=== PATIENT | male | born 1975 | race Caucasian/White ===

== ENCOUNTER 2020-03-18 07:49 | Emergency (ER) | payer BC, SELFPAY ==
--- NOTE | ~2020-03-18 | XR_ITS ---
EXAMINATION: CT abdomen pelvis wo con, XR abdomen/kub 1V DATE: 03/18/2020 08:27 INDICATION: Left flank pain. TECHNIQUE: 1. Computed tomography (CT) of the abdomen and pelvis was performed without intravenous contrast. The dose-length product was 282.42 mGy-cm. 2. Supine AP view of the abdomen and pelvis was obtained on 2 radiographs. COMPARISON: None FINDINGS: CT: Calcite nodules in the lingula and right lower lobe consistent with old granulomatous disease. Emphys artemio versus a couple small pneumatoceles in the right lower lobe. Visualized base of the heart is norm al. No pericardial or pleural effusion. Liver, gallbladder, spleen, pancreas, bilateral adrenal gland s and kidneys are normal. No urolithiasis at the kidneys or ureters. Bladder is normal. Prostatomegal y. There is moderate colonic diverticulosis with a sigmoid and descending colon predominance. There is no adjacent inflammatory change to suggest diverticulitis. Small bowel and appendix are normal. No free intraperitoneal gas or fluid. No pathologically enlarged abdominal or pelvic lymphadenopathy. M oderate disc height loss at L2-L3. Otherwise minimal scattered degenerative skeletal changes. KUB: An oblong radiopaque ingested pill projects over the right abdomen. No suspicious calcification is in the abdomen or pelvis. Normal bowel gas pattern. IMPRESSION: 1. No urolithiasis or acute intra-abdominal/pelvic process. 2. Diverticulosis. Reviewed, dictated and finalized at location A. IMPRESSION: 1. No urolithiasis or acute intra-abdominal/pelvic process. 2. Diverticulosis.
--- NOTE | 2020-03-18 08:11 | ED.BACK ---
HPI - Back Pain/Injury General Chief Complaint: Abdominal Pain Stated Complaint: left flank pain Time Seen by Provider: 03/18/20 08:05 Source: patient Mode of arrival: ambulatory Limitations: no limitations History of Present Illness HPI Narrative: This patient is a 44 year old male with chronic back pain who presents with c/o left flank pain x 3 days. Patient reports pain has been present for 3 days. Initially his pain was intermittent but is has been constant for the past 24 hours. His pain is located in left lower back and he states it does not radiate. He states he has been taking ibuprofen for his pain but it hasnt helped over the past 24 hours. He last took medication last night at 10 pm. He states he is sure that it is a kidney stone. He denies urinary symptoms, nausea, vomiting or fever. MD elicited complaint: back pain Pertinent past history: kidney stones Onset (ago): day(s) (3) Timing: progressively worsening Pain scale (0-10): 5 Relieving factors: movement Associated symptoms: denies other symptoms Related Data Allergies Allergy/AdvReac Type Severity Reaction Status Date / Time No Known Drug Allergies Allergy Unknown Unknown Verified 03/18/20 08:24 Review of Systems Review of Systems: All systems reviewed & are unremarkable except as noted in HPI and below Constitutional: Constitutional: Denies chills and Denies fever(s) ENT: Denies dizziness Gastrointestinal: Gastrointestinal: Denies abdominal pain, Denies diarrhea, Denies nausea and Denies vomiting Genitourinary: Genitourinary: Denies hematuria, Denies oliguria and Denies urinary incontinence Musculoskeletal: Musculoskeletal: Reports back pain Neurologic: Denies dizziness and Denies weakness PMFSH Past Medical History Medical History (Updated 03/18/20 @ 10:14 by Jacquelin Quick MD) Patient denies medical problems Surgical History Surgical History (Updated 03/18/20 @ 08:12 by Jacquelin Quick MD) H/O sinus surgery Social History Social History (Updated 03/18/20 @ 08:12 by Jacquelin Quick MD) Smoking packs per day: 1 Smoking cigarettes per day: 20.0 Smoking status: Current every day smoker Gender identity (if verbalized by the patient): Male Exam Narrative: Exam Narrative: GENERAL: Well-appearing, well-nourished, and in no acute distress. HEAD: Normocephalic, atraumatic EYES: PERRLA and EOMI, conjunctiva clear without discharge THROAT:Mucous membranes moist, Oropharynx normal without erythema, exudate, peritonsillar swelling or fluctuance NECK: Supple, without lymphadenopathy or mass RESPIRATORY: No respiratory distress, Airway patent, Respirations non-labored, Clear to auscultation without rales, rhonchi or wheeze HEART: Regular rate and rhythm. No murmur heard. Normal peripheral pulses. ABDOMEN: Soft, nontender, nondistended, normal active bowel sounds. No masses. No rebound or guarding, No organomegaly. EXTREMITIES: No edema, normal strength with full range of motion. SKIN: Warm, dry, normal color without rash NEURO: Alert and oriented x3. CN 2-12 grossly intact. No focal deficits. PSYCH: Normal mood and affect. Course Reevaluation(s) Reevaluation #1: I have discussed with patient that labs are unremarkable. He has no kidney stones but his pain is likely related to his back, spine. He states he has muscle relaxers at home and he declined medication in ER. Date: 03/18/20 Time: 10:11 Vital Signs Vital signs: Vital Signs Temperature 98.3 F 03/18/20 08:20 Pulse Rate 64 03/18/20 08:20 Respiratory Rate 18 03/18/20 08:20 Blood Pressure 125/81 03/18/20 08:20 Pulse Oximetry 99 03/18/20 08:20 Temperature 98.3 F 03/18/20 08:20 Pulse Rate 67 03/18/20 10:46 Respiratory Rate 18 03/18/20 10:46 Blood Pressure 126/80 03/18/20 10:46 Pulse Oximetry 99 03/18/20 10:46 MDM - Back Pain/Injury Lab Data Attestation: I reviewed the patient's lab results. Result diagrams: 0
[2020-03-18 08:20] VITALS: BP 125/81; PULSE 64; RESP 18; TEMP 36.8; O2SAT 99
[2020-03-18 08:29] LABS: Add Urine Microscopic? NO; Appearance Urine Clear (Clear); Bilirubin Urine Negative (Negative); Blood Urine Negative (Negative); Color Urine Straw (Yellow); Glucose Urine UA Negative (Negative); Ketones Urine Negative (Negative); Leukocyte Esterase Ur Negative LEU/UL (Negative); Nitrate Urine Negative (Negative); Protein Urine Negative (Negative); Urobilinogen Urine Negative mg/dL (<2.0)
[2020-03-18 08:39] LABS: Blood Urea Nitrogen 14 mg/dL (9-20); Calcium 9.5 mg/dL (8.4-10.2); Carbon Dioxide 27 mmol/L (22-30); Chloride 103 mmol/L (98-107); Estimated CRCL calculation 111 ml/min; Estimated Glomerular Filt Rate > 60; Glucose 102 mg/dL (75-110); Sodium 137 mmol/L (137-145)
[2020-03-18 08:40] LABS: Basophils Absolute Auto 0.1 K/mm3 (0.0-0.1); Basophils Percent Auto 1.7 % (0.2-1.2); Eosinophils Absolute Auto 0.2 K/mm3 (0-0.3); Eosinophils Percent Auto 2.2 % (0-4.4); Hematocrit 47.9 % (42.0-52.0); Hemoglobin 16.3 g/dL (14.0-18.0); Immature Granulocyte Absolute 0.03 K/mm3 (0.00-0.031); Immature Granulocyte Percent A 0.4 % (0-0.5); Lymphocytes Absolute Auto 2.11 K/mm3 (0.9-3.2); Lymphocytes Percent Auto 25.5 % (18.3-44.2); Mean Corpuscular Hemoglobin 30.6 pg (26-34); Mean Corpuscular Volume 89.9 fl (80-100); Monocytes Absolute Auto 0.6 K/mm3 (0.1-0.6); Neutrophils Absolute Auto 5.2 K/mm3 (1.3-6.7); Neutrophils Percent Auto 63.2 % (45.5-73.1); Platelet Count Result 302 k/mm3 (150-375); Red Blood Count 5.33 M/mm3 (4.6-6.20); White Blood Count 8.3 K/mm3 (4.5-10.0)
--- NOTE | 2020-03-18 09:34 | PC.NURSE ---
Pt refuses pain medication. Will inform Dr. Quick of this.
[2020-03-18 10:46] VITALS: BP 126/80; PULSE 67; RESP 15; RESP 18; O2SAT 99
== END 2020-03-18 10:47 | disposition home or self-care (01) ==
PROVIDERS: Emergency Provider General Practice; PCP Otolaryngology
DX: M54.5 Low back pain (principal); F17.210 Nicotine dependence, cigarettes, uncomplicated; K57.90 Diverticulosis of intestine, part unspecified, without perforation or abscess without bleeding
CPT/HCPCS: 36415; 74018; 74176; 80048; 81003; 85025; 99284

== ENCOUNTER → 2021-03-21 01:35 | Outpatient (CLI) | payer BC, SELFPAY ==
[2021-03-21 17:24] LABS: SARS-CoV-2 RNA PCR Negative
== END ==
PROVIDERS: PCP Pediatrics; Visit Provider Internal Medicine Gastroenterology
DX: Z01.812 Encounter for preprocedural laboratory examination (principal); Z20.822 Contact with and (suspected) exposure to COVID-19
CPT/HCPCS: C9803; U0003; U0005

== ENCOUNTER 2021-03-24 00:17 | Day surgery (SDC) | payer BC, SELFPAY ==
[2021-03-16 16:06] VITALS: BMI 27.3
[2021-03-24] MEDS: LACTATED RINGERS 1,000 ML 150 ML IV CONT (10:37)
[2021-03-24 10:41] VITALS: BP 146/82; PULSE 68; RESP 16; TEMP 36.6; O2SAT 99; BMI 26.9
--- NOTE | 2021-03-24 11:05 | WPDANESEPPF ---
Anes - Initial Pre Proc Eval Procedure: Operation Date: 03/24/21 11:45 Proposed Procedures p Colonoscopy - Isaias Bey MD s [facility] Hemorrhoid Treatment - Isaias Bey MD Date/Time: 03/24/21 11:05 Surgeon: Isaias Bey MD Pre Op Diagnosis: hematochezia, internal hemorrhoids Patient Data Age: 45 Gender: M Height: 6 ft 4 in Weight: 100.5 kg Last Vital Signs Temp 97.9 F 03/24/21 10:41 Pulse 68 03/24/21 10:41 Resp 16 03/24/21 10:41 BP 146/82 H 03/24/21 10:41 Pulse Ox 99 03/24/21 10:41 Allergies Allergy/AdvReac Type Severity Reaction Status Date / Time grass pollen Allergy Sneezing Verified 03/24/21 10:46 Home Medications Medication Instructions Recorded Confirmed Type No Home Medications 03/16/21 03/24/21 History Patient hx anesthesia problems: none Family hx anesthesia problems: none [facility] Past Medical History Medical History External hemorrhoid Hematochezia Patient denies medical problems Tobacco use Surgical History Surgical History (Updated 03/18/20 @ 08:12 by Jacquelin Quick MD) H/O sinus surgery Social History Social History (Updated 03/18/20 @ 08:12 by Jacquelin Quick MD) Smoking packs per day: 1 Smoking cigarettes per day: 20.0 Years smoked: 33 Smoking pack-years: 33.00 Smoking status: Current every day smoker Tobacco type: cigarettes Alcohol intake: current Drinks per week: 6 Substance use: never Substance use type: does not use Living arrangements: with family Gender identity (if verbalized by the patient): Male Spiritual care concerns: No Anes - Eval Final PreProcedure Day of Procedure 03/24/21 11:05 Patient weight: overweight Heart: regular rate and rhythm Lungs: clear to auscultation Airway: Mallampati scale class II Neurological: alert and oriented Last oral intake: >/= 8 hours ASA classification: II Emergent: no Anesthetic plan: proceed Anesthesia type and monitoring: general GIVS and standard monitoring Informed Consent: The patient's anesthetic plan and its attendant risks and benefits were discussed with the patient/family/POA. Questions were solicited and answers provided to the satisfaction of the patient/family/POA.
--- NOTE | 2021-03-24 11:31 | WPDHPUPDATE1 ---
History and Physical Update Update Date/Time: 03/24/21 11:31 History and Physical has been reviewed, including an updated exam of the patient. There are NO changes in the patient's condition. Risks, benefits, and alternatives have been discussed and questions answered. Patient agrees to proceed with procedure.
--- NOTE | 2021-03-24 11:54 | PM.OP ---
Procedure Note - Brief Procedure Note - Brief Date of procedure: 03/24/21 Pre-op diagnosis: hematochezia, internal hemorrhoids Post-op diagnosis: same Procedure performed: infrared coagulation (IRC) Description of procedure: as soon as we completed colonoscopy while patient was still under anesthesia, I introduced anoscope and found grade II internal hemorrhoids with stigmata of recent bleeding (patient says that started bleeding after drinking bowel prep). Then used IRC probe to treat hemorrhoids 1.5 second each time x6. Surgeon: Isaias Bey MD Complications: No immediate complications
[2021-03-24 11:55] VITALS: BP 113/63; PULSE 56; RESP 26; O2SAT 97
[2021-03-24 12:05] VITALS: BP 121/67; PULSE 50; RESP 14; O2SAT 100
[2021-03-24 12:15] VITALS: BP 118/52; PULSE 49; RESP 16; O2SAT 98
== END 2021-03-24 12:38 | disposition home or self-care (01) ==
PROVIDERS: PCP Pediatrics; Visit Provider Internal Medicine Gastroenterology
PROC: 0DJD8ZZ Inspection of Lower Intestinal Tract, Via Natural or Artificial Opening Endoscopic (ICD-10-PCS; CPT 45378; principal; 2021-03-24 11:45)
PROC: (CPT 46930; 2021-03-24 11:45)
DX: Z12.11 Encounter for screening for malignant neoplasm of colon (principal); K57.30 Diverticulosis of large intestine without perforation or abscess without bleeding; K64.1 Second degree hemorrhoids; D12.2 Benign neoplasm of ascending colon; D12.3 Benign neoplasm of transverse colon; K92.1 Melena; K64.8 Other hemorrhoids; F17.210 Nicotine dependence, cigarettes, uncomplicated; K64.4 Residual hemorrhoidal skin tags
CPT/HCPCS: 45380; 46930; 88305; J2001; J2704; J7120

== ENCOUNTER 2021-08-14 18:34 | Emergency (ER) | payer BC, SELFPAY ==
[2021-08-14 18:34] VITALS: BP 140/68; PULSE 78; RESP 16; TEMP 36.5; O2SAT 100
[2021-08-14] MEDS: SODIUM CHLORIDE 0.9% IV 1,000 ML 999 ML IV CONT (21:39)
[2021-08-14] MEDS: diazePAM INJ (*CRX) 10 MG/2 ML SYRINGE 5 MG IV PUSH (21:40)
--- NOTE | 2021-08-14 21:59 | ED.EXTPRO ---
HPI - Extremity Problem General Chief complaint: Extremity Problem,Nontraumatic Stated complaint: left leg pain Time Seen by Provider: 08/14/21 21:01 History of Present Illness HPI Narrative: Patient is a 46-year-old male who presents ER with lower extremity pain occurring over the last week. Last week patient was having pain and cramping in his right thigh. He was seen at an outside hospital in [facility] where he had blood work performed. He is placed on gabapentin and followed up with his PCP. Pain moved from his right thigh over to his left calf. Calf and thigh on left side have been cramping intermittently over the last 3 days but been persistent today mainly in the calf. No numbness or tingling. No known injury. No new medications outside of the Flexeril and ibuprofen. Reports she noted a lump behind his knee on the left side today, and PCP was concerned it was a DVT so he was sent here. No lower extremity swelling. No long distance travel or prolonged immobilization. No recent surgeries or hormone use. Patient denies any chest pain or shortness of breath. Of note patient does have a bleeding hemorrhoid that is chronic and been giving him trouble for 20 years. He is scheduled with general surgery to have hemorrhoidectomy. Related Data Allergies Allergy/AdvReac Type Severity Reaction Status Date / Time grass pollen Allergy Sneezing Verified 03/24/21 10:46 Review of Systems Review of Systems: All systems reviewed & are unremarkable except as noted in HPI and below Constitutional: Constitutional: Denies chills and Denies fever(s) Cardiovascular: Cardiovascular: Denies chest pain and Denies radiating jaw, neck or arm pain Respiratory: Respiratory: Denies dyspnea Musculoskeletal: Musculoskeletal: Denies back pain, Denies arthralgias, Reports joint swelling (Posterior left knee) and Reports muscle cramps Neurologic: Denies focal weakness and Denies numbness PMFSH Past Medical History Medical History External hemorrhoid Hematochezia Patient denies medical problems Tobacco use Surgical History Surgical History (Updated 03/18/20 @ 08:12 by Jacquelin Quick MD) H/O sinus surgery Social History Social History (Updated 03/18/20 @ 08:12 by Jacquelin Quick MD) Smoking packs per day: 1 Smoking cigarettes per day: 20.0 Years smoked: 33 Smoking pack-years: 33.00 Smoking status: Current every day smoker Tobacco type: cigarettes Alcohol intake: current Drinks per week: 6 Substance use: never Substance use type: does not use Gender identity (if verbalized by the patient): Male Spiritual care concerns: No Exam Narrative: GENERAL: Well-appearing, well-nourished, and in no acute distress. HEAD: Normocephalic, atraumatic. CHEST: Clear to auscultation. No respiratory distress. HEART: Regular rate and rhythm. Normal peripheral pulses. EXTREMITIES: Focused exam of the left lower extremity reveals tenderness over the gastrocnemius bilaterally near the insertions of the tibia and along the midline aspect of the calf. No swelling palpable knots. No discernible swelling of the popliteal fossa on the left side. Normal dorsalis pedis and posterior tibial pulses in the left lower extremity. Patient walking with a limp due to pain in left leg. SKIN: Warm, dry, no rash. NEURO: Alert and oriented x3. PSYCH: Normal mood and affect. Course Course Emergency Course: Patient having improvement in pain with Toradol. Also received Valium. Discharge home with supportive care. Patient declines order for an ultrasound in the morning as he has follow-up with his PCP and will obtain an order then. Electrolytes normal. Vital Signs Vital signs: Vital Signs Temperature 97.7 F 08/14/21 18:34 Pulse Rate 78 08/14/21 18:34 Respiratory Rate 16 08/14/21 18:34 Blood Pressure 140/68 08/14/21 18:34 Pulse Oximetry 100 08/14/21 18:34 Temperature 97.7 F 08/14/21 18:34 Pulse Rate 78
[2021-08-14 22:04] VITALS: BP 146/77; RESP 18; O2SAT 96
[2021-08-14 22:05] LABS: Anion Gap 6 mmol/L (8-16); Blood Urea Nitrogen 16 mg/dL (9-20); Calcium 9.3 mg/dL (8.4-10.2); Carbon Dioxide 30 mmol/L (22-30); Chloride 101 mmol/L (98-107); Creatine Kinase 47 U/L (55-170); Estimated CRCL calculation 137 ml/min; Estimated Glomerular Filt Rate > 60; Glucose 127 mg/dL (65-110); Magnesium 2.3 mg/dL (1.6-2.3); Potassium 3.7 mmol/L (3.4-5.0); Sodium 137 mmol/L (137-145)
[2021-08-14] MEDS: KETOROLAC 30 MG/ML VIAL (*BKC) IV PUSH (22:21)
[2021-08-14] MEDS: HYDROcodone/acetaminophen (*CRX) 5-325 MG TABLET 1 TAB PO (23:24)
== END 2021-08-14 23:42 | disposition home or self-care (01) ==
PROVIDERS: Emergency Provider Emergency Medicine; PCP Pediatrics
DX: M62.838 Other muscle spasm (principal); F17.210 Nicotine dependence, cigarettes, uncomplicated
CPT/HCPCS: 36415; 80048; 82550; 83735; 96361; 96374; 96375; 99284; A9270; J1885; J3360; J7030

== ENCOUNTER → 2022-01-30 08:34 | Outpatient (CLI) | payer BC, SELFPAY ==
[2022-01-30 11:55] LABS: SARS-CoV-2 RNA PCR Negative
== END ==
PROVIDERS: PCP Pediatrics; Visit Provider Surgery
DX: Z01.812 Encounter for preprocedural laboratory examination (principal); Z20.822 Contact with and (suspected) exposure to COVID-19
CPT/HCPCS: C9803; U0003; U0005

== ENCOUNTER 2022-01-31 01:00 | Day surgery (SDC) | payer BC, SELFPAY ==
[2022-01-30 11:12] VITALS: BMI 22.1
--- NOTE | 2022-01-30 11:32 | SUR.PREOP ---
Report to the Outpatient Waiting Room, entrance under the green pavilion located off [facility], at time 1130 on date 01/31/2022 OR Time: 1330 - You and your visitor will be asked a series of questions to screen for COVID 19 for your protection. - A mask is required within the hospital. Preoperative COVID Testing Requirements: No COVID Test needed if: (proof is required; if not received patient will have Rapid Test prior to entry) - Patient has received COVID Vaccine at least 14 days prior to procedure date or - Patient has positive COVID test result within last 90 days of surgery date. COVID Test needed if above criteria is not met If not COVID vaccinated a COVID test must be conducted within 72 hours of surgery and patient is asked to isolate self from time of testing until procedure. You will go to the [facility] for your COVID testing. The [facility] is located at the corner of [address] [facility]. You will only be called if COVID results are positive and your surgeon may reschedule your elective surgery date. Patients may have clear liquids (water, carbonated beverages, clear teas, apple juice) until 3 hours prior to surgery with a maximum of 20 ounces. - No food from midnight until time of surgery - Infants may have breast milk until 4 hours before surgery, infant formula 6 hours prior to surgery. - Children will be allowed to drink immediately following surgery. If applicable, please bring a bottle or sippy cup to assist with drinking. Juice, water, soda, and popsicles are readily available. For infants on formula, please bring formula the day of surgery. Pacifiers are allowed. Take the following medications with a SIP of water the morning of surgery: oxycodone, acyclovir and ativan. Medications to discontinue per physician none. Date to take last dose N/A Please no make-up, nail sinhala, hairspray, perfume, deodorant, or body powder the day of surgery. No jewelry (including any body piercings) or valuables the day of surgery, leave them at home. Please take a shower or bath the night before, or the morning of, surgery with an antibacterial soap. Wear comfortable, loose fitting clothing. Children are encouraged to wear pajamas. - Jewelry must be removed prior to entering the operating room. Rings and piercings that are not removed may be cut off. - The hospital will not accept responsibility for valuables. - Please leave all valuables, including medications, at home the day of surgery. If you are going home after surgery, a licensed maintenance truck driver must drive you home. - NO public transportation without another adult. - We recommend that an adult stay with you for 24 hours following discharge. - We also recommend that you do not drive, make important decision, drink alcoholic beverages, or take any drugs that were not prescribed by your health care provider for at least 24 hours after your discharge time. Follow any additional instructions given to you from your surgeon. Telephone instructions given to spouse Iveth and patient Alessio and asked if any additional questions and then verbalized understanding. Patient advised to call surgeon office or pre surgery nurse liaison [phone] if any additional questions.
[2022-01-31] VITALS (9 sets, daily range): BP systolic 115–133; BP diastolic 68–96; PULSE 50–88; RESP 12–22; TEMP 36.3–36.6; O2SAT 100; BMI 21.5
[2022-01-31] MEDS: ACETAMINOPHEN 500 MG TABLET 1000 MG PO (12:15)
[2022-01-31] MEDS: KETOROLAC 15 MG/ML VIAL (*BKC) IV PUSH (12:15)
--- NOTE | 2022-01-31 12:24 | WPDANESEPPF ---
Anes - Initial Pre Proc Eval Procedure: Operation Date: 01/31/22 13:30 Proposed Procedures p Rectal Exam Under Anesthesia, Hemorrhoidectomy - Dorinda Breen MD Date/Time: 01/31/22 12:24 Surgeon: Dorinda Breen MD Pre Op Diagnosis: hemorrhoid grade 3 Patient Data Age: 46 Gender: M Height: 1.91 m Weight: 78.25 kg Last Vital Signs Temp 36.6 C 01/31/22 12:07 Pulse 88 01/31/22 12:07 Resp 14 01/31/22 12:07 BP 117/75 01/31/22 12:07 Pulse Ox 100 01/31/22 12:07 Allergies Allergy/AdvReac Type Severity Reaction Status Date / Time grass pollen Allergy Sneezing Verified 01/29/22 14:48 Home Medications Medication Instructions Recorded Confirmed Type acyclovir 400 mg PO TID 01/30/22 01/30/22 History fluconazole 200 mg PO BID 01/30/22 01/30/22 History lidocaine 5 patch TRANSDERMAL DAILY 01/30/22 01/30/22 History lorazepam 0.5 mg PO PRN 01/30/22 01/30/22 History oxycodone 5 mg PO Q6-8H 01/30/22 01/30/22 History tamsulosin 0.4 mg PO DAILY 01/30/22 01/30/22 History Patient hx anesthesia problems: none Family hx anesthesia problems: none Results Review: All pre-operative results and documents have been reviewed as part of the pre-operative evaluation. PMFSH Past Medical History Medical History Anxiety CML (chronic myelocytic leukemia) External hemorrhoid Hematochezia Patient denies medical problems Tobacco use Surgical History Surgical History H/O sinus surgery Social History Social History Smoking packs per day: 1 Smoking cigarettes per day: 20.0 Years smoked: 33 Smoking pack-years: 33.00 Smoking status: Former smoker Second hand tobacco smoke exposure: No Alcohol intake: current Drinks per week: 0 Substance use: never Substance use type: does not use Living arrangements: with family Gender identity (if verbalized by the patient): Male Spiritual care concerns: No Anes - Eval Final PreProcedure Day of Procedure 01/31/22 12:24 Patient weight: normal Heart: regular rate and rhythm Lungs: clear to auscultation and normal air movement Airway: Mallampati scale class II Neurological: alert and oriented Last oral intake: >/= 8 hours ASA classification: III Emergent: no Anesthetic plan: proceed Anesthesia type and monitoring: general LMA and standard monitoring Results Review: All pre-operative results and documents have been reviewed as part of the pre-operative evaluation. Informed Consent: The patient's anesthetic plan and its attendant risks and benefits were discussed with the patient/family/POA. Questions were solicited and answers provided to the satisfaction of the patient/family/POA.
--- NOTE | 2022-01-31 13:38 | WPDHPUPDATE1 ---
History and Physical Update Update Date/Time: 01/31/22 13:38 History and Physical has been reviewed, including an updated exam of the patient. There are NO changes in the patient's condition. Risks, benefits, and alternatives have been discussed and questions answered. Patient agrees to proceed with procedure.
[2022-01-31] MEDS: ceFAZolin 2 GM/D5W 50 ML 2 GM/50 ML BAG IVPB (13:41)
[2022-01-31] MEDS: LIDOCAINE HCL 2% GEL UROJET 10 ML PKG MUCOUS MEM (14:06)
[2022-01-31] MEDS: LACTATED RINGERS 1,000 ML 30 ML IV CONT ×2 (14:14→15:08)
--- NOTE | 2022-01-31 14:22 | W.PM.PROC2 ---
Procedure Note - Detailed Date of Procedure 01/31/22 Pre-op Diagnosis hemorrhoid grade 3, thrombosed external hemorrhoid Post-op Diagnosis Same Procedure Performed Exam under anesthesia, external hemorrhoidectomy involving left lateral and right posterior positions Surgeon Dorinda Breen MD Anesthesia General and Local Indications 46 y/o M c multiple external hemorrhoids c frequent flares causing pain, prolapse refractory to conservative measures. Findings multiple external hemorrhoids predominately in L lateral and R posterior Description of Procedure The patient was taken to the operating room and placed in the modified lithotomy position. After adequate induction of general anesthesia, the patient was prepped and draped in the normal sterile fashion. A time-out was then done to verify the patient's identity, as well as the procedure being performed. I began by doing a digital exam. There was noted to be multiple external hemorrhoids, however no internal hemorrhoids were noted. At this point, a bilateral pudendal block was done. Then used the lone Star retractor to further evaluate the anal canal as well as rectum, other than external hemorrhoids no other pathology was noted. I then began excising the external hemorrhoids using the hand-held LigaSure device. The hemorrhoids were noted to be in the left lateral and right posterior positions. There was a thrombosed hemorrhoid in the R posterior position. Multiple hemorrhoids were excised using the LigaSure. The specimens will be sent to pathology for further review. Hemostasis was noted at all excision sites. I then placed a piece of Gelfoam covered with lidocaine jelly into the rectal vault. The patient tolerated the procedure and was extubated in the operating room postop. He will be transferred to the recovery room in stable condition. Implants Gelfoam covered with lidocaine jelly in the rectal vault Estimated Blood Loss 10 Drains No Packing Yes Pathology Yes Complications No immediate complications Condition Stable Disposition PACU
[2022-01-31] MEDS: HYDROmorphone HCL INJ (*CRX) 1 MG/ML SYR 0.25 MG IV PUSH ×8 (14:40→15:15)
[2022-01-31] MEDS: oxyCODONE HCL (*CRX) 5 MG TAB IR PO (15:30)
== END 2022-01-31 16:10 | disposition home or self-care (01) ==
PROVIDERS: PCP Pediatrics; Visit Provider Surgery
PROC: (CPT 46250; principal; 2022-01-31 13:30)
DX: K64.2 Third degree hemorrhoids (principal); K64.5 Perianal venous thrombosis; C92.10 Chronic myeloid leukemia, BCR/ABL-positive, not having achieved remission; F41.9 Anxiety disorder, unspecified; Z87.891 Personal history of nicotine dependence
CPT/HCPCS: 46250; 88304; A9270; J0690; J1170; J1885; J2001; J2250; J2704; J3010; J7120

== ENCOUNTER 2025-02-18 14:27 | Outpatient (CLI) | payer OTHER, SELFPAY ==
--- NOTE | 2025-02-18 14:45 | ECG_ITS ---
Test Date: 2025-02-18 14:55:59 Measurements Intervals [place] Rate: 68 P: 58 AL: 147 QRS: -53 QRSD: 103 T: 33 QT: 376 QTc: 401 Interpretive Statements SINUS RHYTHM PATTERN CONSISTENT WITH PULMONARY DISEASE LEFT ANTERIOR FASCICULAR BLOCK [QRS AXIS <= -45, QR IN I, RS IN II] POOR R-WAVE PROGRESSION ABNORMAL ECG No previous ECG available for comparison Electronically Signed On 02-19-2025 09:46:03 CDT by Prasanna Rueda M.D.
== END 2025-02-18 14:28 | disposition home or self-care (01) ==
LOC: ANHSURGERY 14:30
PROVIDERS: PCP Pediatrics; Visit Provider Surgery
DX: Z01.818 Encounter for other preprocedural examination (principal); K40.90 Unilateral inguinal hernia, without obstruction or gangrene, not specified as recurrent; F17.210 Nicotine dependence, cigarettes, uncomplicated; I44.4 Left anterior fascicular block
CPT/HCPCS: 36415; 86850; 86900; 86901; 93005

== ENCOUNTER 2025-02-25 01:59 | Day surgery (SDC) | payer OTHER, SELFPAY ==
--- NOTE | 2025-02-17 15:17 | PC.NURSE ---
Alessio Russo gave me permission to do interview with his Iveth Russo. Report to the Outpatient Waiting Room, entrance under the green pavilion located off [facility], at time _1200_ on date _[id number]_. Planned Procedure Time: _2pm_.? Time changes happen often and if your time is changed the preop area will call you the afternoon before. - You and your visitor will be asked to self-screen and do not enter if you have any COVID symptoms. Please call surgeon if you need to reschedule. - A mask is optional within the hospital at this time. Patients may have clear liquids (water, carbonated beverages, clear teas, apple juice) until 3 hours prior to surgery with a maximum of 20 ounces. - No food from midnight until time of surgery and no smoking, or chewing tobacco (or any form of nicotine). No chewing gum, candy or mints. Take only the following medications with a SIP of water on the morning of surgery: __Lorazepam if needed. DO NOT STOP ANY OF YOUR OTHER PRESCRIPTION MEDICATIONS PRIOR TO SURGERY EXCEPT THE FOLLOWING Hold all vitamins and supplements for 3 days per anesthesiologist. Medications to discontinue per physician Date to take last dose Please no make-up, nail hungarian, hairspray, perfume, deodorant, or body powder the day of surgery.? No jewelry (including any body piercings) or valuables the day of surgery, leave them at home.? Please take a shower or bath the night before, or the morning of, surgery with an antibacterial soap.? Wear comfortable, loose fitting clothing.? - Jewelry must be removed prior to entering the operating room.? Rings and piercings that are not removed may be cut off. - The hospital will not accept responsibility for valuables.? - Please leave all valuables, including medications, at home the day of surgery. If you are going home after surgery, a licensed limb driver must drive you home.? - NO public transportation without another adult if you receive anesthesia. - We recommend that an adult stay with you for 24 hours following discharge. - We also recommend that you do not drive, make important decision, drink alcoholic beverages, or take any drugs that were not prescribed by your health care provider for at least 24 hours after your discharge time. Follow any additional instructions given to you from your surgeon. Telephone instructions given to __Kay/Wife___and asked if any additional questions and then verbalized understanding. Patient advised to call surgeon office or pre surgery nurse liaison [phone] if any additional questions.
[2025-02-17 15:22] VITALS: BMI 27.5
--- OUTSIDE RECORDS SUMMARY | 2025-02-18 14:21 | XMS_ITS ---
Author Organization [facility] Address [address] [place] [address] Care Team Providers Care Clothing Designer Name Role Phone Domingo Chavez MD Primary Care Provider Elicia Espinal MD Unavailable [phone] Dorinda Breen MD Unavailable Active Problems Patient Care Coordination No te Formatting of this note is d ifferent from the original. BMT Inpatient Care Coordination Overview Diagnosis Blast Phase CML/AML Floor 8800 Treatment Plan FluBu4 PT Cy haplo Clinical Trial Itacitinib [id number] GVHD prophylaxis Reason for Admission Haplo SCT Discharge Planning Anticipated Discharge Date 04/27 Patient Education Completed Discharge education and bag provided to pt/ 04/27 Issue to be Resolved Before Discharge Discharge Disposition Home Requests Sent to Case Management and/or Medical Assistants Letermovir here specialty Post-Discharge Follow-Up Living Situation/Distance from [facility] 45 mins Caregiver SpouseIveth Lab/Transfusion Frequency 2x/weekly Prefers to keep all treatments at [facility] Venous Access & Care trifusion Post-Discharge Office Visit (H30) [facility]/H30/IVF 04/30 Miscellaneous Notes: Problem Noted Date Diagnosed Date Need for vaccination 09/20/2022 COVID-19 06/07/2022 Hypogammaglobulinemia 05/08/2022 Chronic ITP (idiopathic thrombocytopenia) 2021 Pancytopenia 10/31/2021 Severe malnutrition 10/24/2021 Subcapsular hematoma of liver 09/24/2021 Assessment & Plan (09/25/2021 11:47 AM GENERATOR ASSEMBLER): 2/2 spontaneous rupture vs drain placement. Acute drop in hgb on 09/23 requiring multiple PRBCs transfusion. 09/24 CT CAP new with subcapsular liver hematoma 2/2 venous bleed. -CBC every 6 hour -Serial abd exam -Transfuse to keep hgb > 8.0 ERIC (obstructive sleep apnea) 09/21/2021 Assessment & Plan (09/22/2021 12:26 PM GENERATOR ASSEMBLER): History of ERIC. Continue home cpap Chronic myeloid leukemia, Bl ast Phase, BCR/ABL-positive, in remission 09/12/2021 Assessment & Plan (09/25/2021 11:46 AM GENERATOR ASSEMBLER): Presented with fevers, elevated WBC with 09/11 BMBx + for AML with FLT-3 negative -MyeloSeq pending -Induction with 7+3+Dasatinib started 09/12/21. Dasatinib began on D8. -OI: acyclovir -F/u BMT recs H/O stem cell transplant Current Treatment and Therapy Plans COVID-19 - BMT (CMV NEGATIVE/UNTESTED) ADULT BLOOD AND PLATELET ADMINISTRATION FOR OUTPATIENT* Plan Start Date:11/02/2021 Plan Provider:Elicia Espinal MD Linked Problems Pancytopenia (HCC)Chronic my eloid leukemia, BCR/ABL-positive, in remission (HCC) Treatment Medications No medications scheduled. HYDRATION & ELECTROLYTES THERAPY PLAN* Plan Start Date:04/30/2022 Plan Provider:Elicia Espinal MD Linked Problems Chronic myeloid leukemia, BC R/ABL-positive, in remission (HCC) Treatment Medications No medications scheduled. IV Maintenance Therapy Plan* Plan Start Date:11/05/2021 Plan Provider:Elicia Espinal MD Linked Problems Chronic myeloid leukemia, BC R/ABL-positive, in remission (HCC)Pancytopenia (HCC) Treatment Medications No medications scheduled. Post-SCT Vaccinations* Plan Start Date:11/12/2022 Plan Provider:Elicia Espinal MD Linked Problems Chronic myeloid leukemia, BC R/ABL-positive, in remission (HCC)H/O stem cell transplant (HCC)Need for vaccination Treatment Medications No medications scheduled. Past Treatment and Therapy Plans BMT/ONC IP BLOOD PRODUCTS Plan Name Start Date Discontinue Date Treatment Medications Discontinue Reason Plan Provider COVID-19 - BMT (CMV Negative/Untested) Adult Blood and Platelet Administration for Inpatient 10/27/2021 12/17/2023 No medications scheduled. Automatic discontinuation of dormant plans Maria R Loyola MD COVID-19 - BMT (CMV NEGATIVE/UNTESTED) ADULT BLOOD AND PLATELET ADMINISTRATION FOR INPATIENT 09/14/2021 10/05/2021 No medications scheduled. Patient Discharged Say Mendez MD Oncology Chemotherapy Treatment Plan Name Start Date Discontinue Date Treatment Medications Discontinue Reason Plan Provider Cycles INPT - FluBu4 PTCy plus PKs (Fludarabine / Busulfan / Cyclophospham joao) - BMT 03/15/2022 04/30/2022 busulfan (BUSULFEX) IVPB 0.5 mg/mLcycloPHOSphami de IVPB in 250 mL (vial 200 mg/mL)([id number])fludar abine (FLUDARA) IVPBmesna (MESNEX) IVPB in 100 mLmycophenolate mofetil (CELLCEPT)tacrolimu s (PROGRAF) IVPB in 100 mL Therapy Complete Elicia Espinal MD 1 of 1 cycle started OUTPT/INPT - High dose Cytarabine 28 day cycles - AML 2 02/27/2022 cytarabine (MAGGIE-C) IVPB (for doses <1,000 mg/m2)cytarabine (MAGGIE-C) IVPB (for doses > 1,000 mg/m2)cytarabine (MAGGIE-C,CYTOSAR-U) Therapy Complete Elicia Espinal MD 2 of 4 cycles started INPT - Standard-Dose Cytarabine CIVI / IDArubicin (7+3) 1 Cycle - AML 1 10/11/2021 cytarabine (MAGGIE-C) infusiondaSATinib (SPRYCEL)IDArubicin (IDAMYCIN) Therapy Complete Alessio Vital MD 1 of 1 cycle started Oncology Treatment (2) Plan Name Start Date Discontinue Date Treatment Medications Discontinue Reason Plan Provider Cycles [id number] - INPT/OP - RSH - Heme/BMT - Itacitinib for GVHD prophylaxis 03/15/2022 01/14/2023 [id number] itacitinib SR (2019-03-114/I -30964-68-11) Therapy Complete Elicia Espinal MD 2 of 2 cycles started Lifetime Dose Tracking * Chemical Lifetime Dose Automatic Entry Manual Entr y idarubicin 35.528 mg/m2 (81 mg) 35.528 mg/m2 (81 mg) 0 mg/m2 (0 mg) Fluoro Time 3.7 minutes 3.7 minutes 0 minutes cyclophosphamide 3,818.638 mg/m2 (8,000 mg) 3,818.638 mg/m2 (8,000 mg) 0 mg/m2 (0 mg) doxorubicin isotoxic equivalent (Please manually verify calculation) 177.638 mg/m2 (405 mg) 177.638 mg/m2 (405 mg) 0 mg/m2 (0 mg) Air kerma at the reference point (Ka,r) 163.1 mGy 125 mGy 38.1 mGy DLP 8,237 mGycm 8,237 mGycm 0 mGycm Resolved Problems Problem Noted Date Diagnosed Date Resolved Date Elevated transaminase level 09/22/2021 04/30/2022 Assessment & Plan (09/25/2021 11:47 AM GENERATOR ASSEMBLER): Likely 2/2 poor profusion with cardial tamponade. AST/ALT elevated, but now down trending. AST 502 (peak 3654), AST 1779 (peak 2903). -Improved BP with drain placement and down trending AST/ALT -Trend CMP TANGELA (acute kidney injury) 09/21/2021 Assessment & Plan (09/25/2021 11:46 AM GENERATOR ASSEMBLER): Likely 2/2 prerenal etiology in setting of decreased flow with pericardial effusion vs dehydration with poor PO intake at home . Baseline Cr ~ 0.6. Now with down trending BUN/Cr. Cr 1.17 (2.5) with peak of 3.12. Stable UOP- 1655 cc over last 24 hours -Trend BUN/Cr -Monitor UOP -Avoid nephrotoxins Shock 09/21/2021 04/30/2022 Assessment & Plan (09/25/2021 11:45 AM GENERATOR ASSEMBLER): 2/2 pericardial effusion with tamponade vs sepsis. Presented with chest pain and admitted to the floor, transferred to the ICU on 09/21 with hypotensive not responsive to fluid resuscitation. Required levophed until drain placed. Infectious work up with 09/22 C Diff neg, 09/21 RVP neg, EBV eng, CMP pending, UA neg, Bld cx NGTD. Receiving Vancomycin (09/20-09/24) and cefepime (09/20- ) -Titrate levophed to keep MAP > 60. -See cardiac tamponade treatment as above -f/u cultures -Continue Cefepime Hyponatremia 09/21/2021 04/30/2022 Assessment & Plan (09/25/2021 11:47 AM GENERATOR ASSEMBLER): likely in setting of poor po intake. Na 134 (133) -fluid resuscitation with NS as needed -daily BMP Leukocytosis 09/08/2021 09/21/2021 Cardiac tamponade 09/08/2021 04/30/2022 Overview (09/22/2021): Added automatically from request for surgery [id number] Assessment & Plan (09/25/2021 11:43 AM GENERATOR ASSEMBLER): Likely 2/2 dasatinib. Developed chest pain with CT chest showing small pericardial effusion. 09/21 echo with large pericardial effusion with tamponade physiology. Consulted Cardio Oncology. To field laborer 09/22 for pericardial drain placement. Initial output 650 cc. Drain removed on 09/24. -Continue colchicine, hold NSAID with TANGELA -Monitor output -F/u cultures -f/u flow cytometry
--- OUTSIDE RECORDS SUMMARY | 2025-02-18 14:21 | XMS_ITS | Encounter Summary ---
Author Organization [facility] Address [address] [place] [address] Phone Care Team Providers Care Floor Attendant Name Role Phone Domingo Chavez MD Primary Care Provider Elicia Espinal MD Unavailable [phone] Dorinda Breen MD Unavailable [phone] Encounter Details Date Type Department Care Team (Late st Contact Info) Description 11/14/2021 Telephone [facility] Bone Marrow Transplant [address] [facility], [place] [address] Renuka Atwood V. Social History Tobacco Use Types Packs/Day Years Used Date Smoking Tobacco: Former Cigarettes 1 40.4 S tarted: 1985 Smokeless Tobacco: Never Sex and Gender Information Value Date Recorded Sex Assigned at Not on file Legal Sex Male 8:08 PM SUPERVISOR BRIDGES AND BUILDINGS Gender Identity Male 10/04/2021 8:04 PM SUPERVISOR [employer]ILD[employer] Sexual Orientation Not on file documented as of this encounter Plan of Treatment Not on file documented as of this encounter Visit Diagnoses Not on filedocumented in this encounter Additional Health Concerns Infection Onset Date Last Indicated Resolved Time C. difficile Comment:11/28/2021 IP Review: patient has no charted episodes of diarrhea in the past 48 hours. OK to come off of C.dif precautions. Roslyn Linares RN 10/05/2021 10/05/2021 11/28/2021 8:[address] C. difficile Comment:04/06/2022 IP Review: per current RN, no diarrhea in the past 48 hours Roslyn Linares RN 01/05/2022 IP Review: in order to be taken off of C.dif precautions, patient needs to have completed at least 7 days of effective abx and be diarrhea free for 48 hours, whichever is longer. Please contact infection prevention once these conditions have been met in order for C.dif precaution removal. Roslyn Linares RN 01/01/2022 01/01/2022 04/06/2022 8:15 AM C DT C. difficile 04/14/2022 04/14/2022 COVID: Suspected 06/07/2022 06/07/2022 06/07/2022 12:48 PM CDT COVID19 06/07/2022 06/08/2022 06/18/2022 3:05 AM CDT COVID: Suspected 06/08/2022 06/08/2022 06/08/2022 8:49 AM CDT COVID: Recovered Comment:Added based on recent COVID infection. 06/18/2022 06/18/2022 10/16/2022 3:[address] documented as of this encounter Care Teams Floor Attendant Relationship Specialty Start Date End Date Domingo Chavez MD PCP - General Internal Medicine 09/05/21 Elicia Espinal MD Medical Oncologist/Link Knitting Machine Operator Hematology 09/20/21 Dorinda Breen MD [address] [facility] [address] [place] [address] Consulting Physician Gastroenterology 01/30/22 documented as of this encounter
--- OUTSIDE RECORDS SUMMARY | 2025-02-18 14:21 | XMS_ITS | Clinical Summary ---
Author Organization [facility] Address [address] [place] [address] Care Team Providers Care Graphic Design Intern Name Role Phone Domingo Chavez MD Primary Care Provider Elicia Espinal MD Unavailable [phone] Dorinda Breen MD Unavailable [phone] Allergies Active Allergy Reactions Criticality Noted Date Comments Chlorhexidine Gluconate Itching,Redness Medium 022 Chlorhexidine Itching,Redness Medium 01/30/[address] (PROTONIX) 40 mg EC tabletIndication s:Cancer Chemotherapy-Ind uced Nausea and Vomiting,Mucosit is Prophylaxis Take 1 tablet (40 mg total) by mouth daily 30 tablet 11 11/26/2022 Active LORazepam (ATIVAN) 0.5 mg tabletIndication s:Cancer Chemotherapy-Ind uced Nausea and Vomiting Take 1 tablet (0.5 mg total) by mouth every 8 (eight) hours as needed for anxiety NEEDED. 30 tablet 01/01/2024 Active Active Problems Patient Care Coordination No te Formatting of this note is d ifferent from the original. BMT Inpatient Care Coordination Overview Diagnosis Blast Phase CML/AML Floor 8800 Treatment Plan FluBu4 PT Cy haplo Clinical Trial Itacitinib [id number] GVHD prophylaxis Reason for Admission Haplo SCT Discharge Planning Anticipated Discharge Date 04/27 Patient Education Completed Discharge education and bag provided to pt/ 04/27 Issue to be Resolved Before Discharge Discharge Disposition Home Requests Sent to Case Management and/or Medical Assistants Letermovir here specialty Post-Discharge Follow-Up Living Situation/Distance from [facility] 45 mins Caregiver Spouse, Iveth Lab/Transfusion Frequency 2x/weekly Prefers to keep all treatments at [facility] Venous Access & Care trifusion Post-Discharge Office Visit (H30) [facility]/H30/IVF 04/30 Miscellaneous Notes: Problem Noted Date Diagnosed Date Need for vaccination 09/20/2022 COVID-19 06/07/2022 Hypogammaglobulinemia 05/08/2022 Chronic ITP (idiopathic thrombocytopenia) 2021 Pancytopenia 10/31/2021 Severe malnutrition 10/24/2021 Subcapsular hematoma of liver 09/24/2021 Assessment & Plan (09/25/2021 11:47 AM WETLANDS TECHNICIAN): 2/2 spontaneous rupture vs drain placement. Acute drop in hgb on 09/23 requiring multiple PRBCs transfusion. 09/24 CT CAP new with subcapsular liver hematoma 2/2 venous bleed. -CBC every 6 hour -Serial abd exam -Transfuse to keep hgb > 8.0 ERIC (obstructive sleep apnea) 09/21/2021 Assessment & Plan (09/22/2021 12:26 PM WETLANDS TECHNICIAN): History of ERIC. Continue home cpap Chronic myeloid leukemia, Bl ast Phase, BCR/ABL-positive, in remission 09/12/2021 Assessment & Plan (09/25/2021 11:46 AM WETLANDS TECHNICIAN): Presented with fevers, elevated WBC with 09/11 BMBx + for AML with FLT-3 negative -MyeloSeq pending -Induction with 7+3+Dasatinib started 09/12/21. Dasatinib began on D8. -OI: acyclovir -F/u BMT recs H/O stem cell transplant Resolved Problems Problem Noted Date Diagnosed Date Resolved Date Elevated transaminase level 09/22/2021 04/30/2022 Assessment & Plan (09/25/2021 11:47 AM WETLANDS TECHNICIAN): Likely 2/2 poor profusion with cardial tamponade. AST/ALT elevated, but now down trending. AST 502 (peak 3654), AST 1779 (peak 2903). -Improved BP with drain placement and down trending AST/ALT -Trend CMP TANGELA (acute kidney injury) 09/21/2021 Assessment & Plan (09/25/2021 11:46 AM WETLANDS TECHNICIAN): Likely 2/2 prerenal etiology in setting of decreased flow with pericardial effusion vs dehydration with poor PO intake at home . Baseline Cr ~ 0.6. Now with down trending BUN/Cr. Cr 1.17 (2.5) with peak of 3.12. Stable UOP- 1655 cc over last 24 hours -Trend BUN/Cr -Monitor UOP -Avoid nephrotoxins Shock 09/21/2021 04/30/2022 Assessment & Plan (09/25/2021 11:45 AM WETLANDS TECHNICIAN): 2/2 pericardial effusion with tamponade vs sepsis. [...] 04/30/2022 Assessment & Plan (09/25/2021 11:47 AM WETLANDS TECHNICIAN): likely in setting of poor po intake. Na 134 (133) -fluid resuscitation with NS as needed -daily BMP Leukocytosis 09/08/2021 09/21/2021 Cardiac tamponade 09/08/2021 04/30/2022 Overview (09/22/2021): Added automatically from request for surgery [id number] Assessment & Plan (09/25/2021 11:43 AM WETLANDS TECHNICIAN): Likely 2/2 dasatinib. Developed chest pain with CT chest showing small pericardial effusion. 09/21 echo with large pericardial effusion with tamponade physiology. Consulted Cardio Oncology. To label press operator 09/22 for pericardial drain placement. Initial output 650 cc. Drain removed on 09/24. -Continue colchicine, hold NSAID with TANGELA -Monitor output -F/u cultures -f/u flow cytometry Immunizations Immunization Administration Dates Next Due DTaP 03/18/2023, 3,05/17/1975,11/18,1973,1973 DTaP, Unspecified 05/17/1975, 4,1973,06/26 Hep B, Dialysis 07/01/2023,03/18/2023,01/14/2023 Hib (PRP-T) 07/01/2023,03/18/2023,01/14/2023 IPV 10/14/2023,03/18/2023,01/14/2023 Influenza, Quadrivalent, Karina l Culture-based MDCK, Preservative Free, Antibiotic Free, Intramuscular 07/30/2022 Influenza, Trivalent, Preser vative Free, Intramuscular 08/12/2016 Influenza, Unspecified 08/12/2016 MMR 10/21/2024,07/15/2024 MMRV 04/20/1974 Pneumococcal Conjugate PCV 13 07/01/2023, 023,01/14/2023 Pneumococcal Polysaccharide PPV23 10/14/2023 Tdap 07/01/2023,06/30/1987 ZOSTER Recombinant 10/14/2023,07/01/2023 Surgical History Surgery Date Site/Laterality Comments SINUS SURGERY INCISION AND DRAINAGE PERIRECTAL ABSCESS CENTRAL LINE PLACEMENT > 5 YEARS 09/12/2021 N/A US GUIDED THORACENTESIS 10/02/2021 N/A TUNNELED LINE PLACEMENT > 5 YEARS 04/03/2022 N/A REMOVE TUNNELED LINE 08/06/2022 Left Medical History Medical History Date Comments ERIC (obstructive sleep apnea) Sinusitis Pericardial effusion with ca rdiac tamponade Cancer (HCC) Cardiac tamponade 09/08/2021 Added automati sabrina from request for surgery [id number] Family History Medical History Relation Name Comments Colon cancer Other Prostate cancer Other Leukemia Neg Hx Relation Name Status Comments Other Social History Tobacco Use Types Packs/Day Years Used Date Smoking Tobacco: Some Days Cigarettes 0.4 40.4 Started: 1984 Smokeless Tobacco: Never Tobacco Cessation:Ready to Q uit: Not Asked; Counseling Given: Not Answered AUDIT-C Answer Date Recorded Q1: How often do you have a drink containing alcohol? Never 04/29/2023 Q2: How many drinks containi ng alcohol do you have on a typical day when you are drinking? Patient does not drink Q3: How often do you have si x or more drinks on one occasion? Never 04/29/2023 Sex and Gender Information Value Date Recorded Sex Assigned at Not on file Legal Sex Male 8:08 PM WETLANDS TECHNICIAN Gender Identity Male 10/04/2021 8:04 PM WETLANDS TECHNICIAN Sexual Orientation Not on file Obstetrics History Last Filed Vital Signs Vital Sign Reading Time Taken Comments Blood Pressure 116/75 10/21/2024 2:02 PM WETLANDS TECHNICIAN Pulse 62 10/21/2024 2:02 PM WETLANDS TECHNICIAN Temperature 36.4 C (97.5 F) 10/21/2024 2:02 PM WETLANDS TECHNICIAN Respiratory Rate 18 10/21/2024 2:02 PM WETLANDS TECHNICIAN Oxygen Saturation 97% 10/21/2024 2:02 PM WETLANDS TECHNICIAN Inhaled Oxygen Concentration - - Weight 103.3 kg (227 lb 12.8 oz) 2023 10:32 AM CDT Height 190.5 cm (6' 3 ) 10/21/2024 2:02 PM WETLANDS TECHNICIAN Body Mass Index 28.47 04/13/2024 10:15 AM CDT Plan of Treatment Health Maintenance Due Date Last Done Comments Colon Cancer Screening-Colonoscopy 1973 Depression Screening 1973 Prostate Cancer Screening-PSA 1973 Regular Well Visit/Exam 18-64 1991 Pneumococcal vaccine <65 (3 of 3 - PPSV23, PCV20 or PCV21) 10/14/2028 10/14/2023, 07/01/2023, 03/18/2023, Additional history exists DTaP/Tdap/Td Vaccine (9 - Td or Tdap) 07/01/2033 07/01/2023, 03/18/2023, 01/14/2023, Additional history exists Hepatitis C Screening Completed 03/16/2022 , 02/12/2022, 12/21/2021, Additional history exists Hepatitis B Screening Completed 07/01/2023 , 03/18/2023, 01/14/2023, Additional history exists Zoster Vaccine Completed 10/14/2023, 07/01/2023 Influenza Vaccine Completed 08/20/2024, , 08/12/2016, Additional history exists Procedures Procedure Name Priority Date/Time Associated Diagnosis Comments HEPATITIS PANEL, ACUTE Routine 03/16/2022 11:45 AM CDT Blastic phase chronic myeloid leukemia (HCC) from Last 3 Months or Most Recently Relevant to Health Maintenance Results * Hepatitis panel, acute (03/16/2022 11:45 AM CDT) Hep A IgM Nonreactive Nonreactive [facility] Comment: Interpretive Data: If Hep A IgM Ab is reported as Equivocal, a new sample should be drawn in two weeks for testing. Current interpretive data was last revised on 19. Hep B core IgM Nonreactive Nonreactive [facility] Comment: Interpretive Data If HepB Core IgM Ab is reported as Equivocal, a new sample should be drawn in two weeks for testing. Current interpretive data was last revised on 19. Hep C Ab Nonreactive Nonreactive [facility] Comment:Antibodies to HCV no t detected. Does NOT exclude the possibility of recent exposure to HCV. HepBsAg Nonreactive Nonreactive [facility] Blood 03/16/2022 11:4 5 AM CDT 03/16/2022 11:59 AM CDT Elicia Espinal MD LAB MICROBIOLOGY - GENERAL ORDERABLES Edited Result - Final [facility] [place] [address] from Last 3 Months or Most Recently Relevant to Health Maintenance Additional Health Concerns Infection Onset Date Last Indicated C. difficile 04/14/2022 04/14/2022 Insurance [employer] [facility] [place] [address] Advance Directives For more information, please contact: [phone] * Full Code (Latest Code Status on File) Date Activated Date Inactivated Comments 08/06/2022 1:10 PM 08/07/2022 5:23 AM * Full Code Date Activated Date Inactivated Comments 04/03/2022 4:55 PM 04/27/2022 4:07 PM * Full Code Date Activated Date Inactivated Comments 04/03/2022 1:20 PM 04/03/2022 4:41 PM * Full Code Date Activated Date Inactivated Comments 01/01/2022 7:24 PM 01/05/2022 3:05 PM * Full Code Date Activated Date Inactivated Comments 11/24/2021 6:07 PM 11/28/2021 1:36 PM Care Teams Graphic Design Intern Relationship Specialty Start Date End Date Domingo Chavez MD PCP - General Internal Medicine 09/05/21 Elicia Espinal MD Medical Oncologist/Ada Accommodation Consultant Hematology 09/20/21 Dorinda Breen MD [address] [address] Consulting Physician Gastroenterology 01/30/22
--- OUTSIDE RECORDS SUMMARY | 2025-02-18 14:21 | XMS_ITS | Referral Summary ---
Author Organization [facility] Address [address] [place] [address] Care Team Providers Care Morning Show Newscast Producer Name Role Phone Domingo Chavez MD Primary Care Provider Elicia Espinal MD Unavailable Dorinda Breen MD Unavailable [phone] Allergies Active Allergy Reactions Criticality Noted [...] FluBu4 PT Cy haplo Clinical Trial Itacitinib [id number] GVHD prophylaxis Reason for Admission Haplo SCT Discharge Planning Anticipated Discharge Date 04/27 Patient Education Completed Discharge education and bag provided to pt/ 04/27 Issue to be Resolved Before Discharge Discharge Disposition Home Requests Sent to Case Management and/or Medical Assistants Letermovir here specialty Post-Discharge Follow-Up Living Situation/Distance from [facility] 45 mins Caregiver Spouse, Iveth Lab/Transfusion Frequency 2x/weekly Prefers to keep all treatments at [facility] Venous Access & Care trifusion Post-Discharge Office Visit (H30) [facility]/H30/IVF 04/30 Miscellaneous Notes: Problem Noted Date Diagnosed Date Need for vaccination 09/20/2022 COVID-19 06/07/2022 Hypogammaglobulinemia 05/08/2022 Chronic ITP (idiopathic thrombocytopenia) 2021 Pancytopenia 10/31/2021 Severe malnutrition 10/24/2021 Subcapsular hematoma of liver 09/24/2021 Assessment & Plan (09/25/2021 11:47 AM GLASS FRAME FITTER): 2/2 spontaneous rupture vs drain placement. Acute drop in hgb on 09/23 requiring multiple PRBCs transfusion. 09/24 CT CAP new with subcapsular liver hematoma 2/2 venous bleed. -CBC every 6 hour -Serial abd exam -Transfuse to keep hgb > 8.0 ERIC (obstructive sleep apnea) 09/21/2021 Assessment & Plan (09/22/2021 12:26 PM GLASS FRAME FITTER): History of ERIC. Continue home cpap Chronic myeloid leukemia, Bl ast Phase, BCR/ABL-positive, in remission 09/12/2021 Assessment & Plan (09/25/2021 11:46 AM GLASS FRAME FITTER): Presented with fevers, elevated WBC with 09/11 BMBx + for AML with FLT-3 negative -MyeloSeq pending -Induction with 7+3+Dasatinib started 09/12/21. Dasatinib began on D8. -OI: acyclovir -F/u BMT recs H/O stem cell transplant Resolved Problems Problem Noted Date Diagnosed Date Resolved Date Elevated transaminase level 09/22/2021 04/30/2022 Assessment & Plan (09/25/2021 11:47 AM GLASS FRAME FITTER): Likely 2/2 poor profusion with cardial tamponade. AST/ALT elevated, but now down trending. AST 502 (peak 3654), AST 1779 (peak 2903). -Improved BP with drain placement and down trending AST/ALT -Trend CMP TANGELA (acute kidney injury) 09/21/2021 Assessment & Plan (09/25/2021 11:46 AM GLASS FRAME FITTER): Likely 2/2 prerenal etiology in setting of decreased flow with pericardial effusion vs dehydration with poor PO intake at home . Baseline Cr ~ 0.6. Now with down trending BUN/Cr. Cr 1.17 (2.5) with peak of 3.12. Stable UOP- 1655 cc over last 24 hours -Trend BUN/Cr -Monitor UOP -Avoid nephrotoxins Shock 09/21/2021 04/30/2022 Assessment & Plan (09/25/2021 11:45 AM GLASS FRAME FITTER): 2/2 pericardial effusion with tamponade vs sepsis. [...] 04/30/2022 Assessment & Plan (09/25/2021 11:47 AM GLASS FRAME FITTER): likely in setting of poor po intake. Na 134 (133) -fluid resuscitation with NS as needed -daily BMP Leukocytosis 09/08/2021 09/21/2021 Cardiac tamponade 09/08/2021 04/30/2022 Overview (09/22/2021): Added automatically from request for surgery [id number] Assessment & Plan (09/25/2021 11:43 AM GLASS FRAME FITTER): Likely 2/2 dasatinib. Developed chest pain with CT chest showing small pericardial effusion. 09/21 echo with large pericardial effusion with tamponade physiology. Consulted Cardio Oncology. To laborer aquatic life 09/22 for pericardial drain placement. Initial output [...] PPV23 10/14/2023 Tdap 07/01/2023,06/30/1987 ZOSTER Recombinant 10/14/2023,07/01/2023 Social History Tobacco Use Types Packs/Day Years [...] on file Legal Sex Male 8:08 PM GLASS FRAME FITTER Gender Identity Male 10/04/2021 8:04 PM GLASS FRAME FITTER Sexual Orientation Not on file Last Filed Vital Signs Vital Sign Reading Time Taken Comments Blood Pressure 116/75 10/21/2024 2:02 PM GLASS FRAME FITTER Pulse 62 10/21/2024 2:02 PM GLASS FRAME FITTER Temperature 36.4 C (97.5 F) 10/21/2024 2:02 PM GLASS FRAME FITTER Respiratory Rate 18 10/21/2024 2:02 PM GLASS FRAME FITTER Oxygen Saturation 97% 10/21/2024 2:02 PM GLASS FRAME FITTER Inhaled Oxygen Concentration - - Weight 103.3 kg (227 lb 12.8 oz) 2023 10:32 AM CDT Height 190.5 cm (6' 3 ) 10/21/2024 2:02 PM GLASS FRAME FITTER Body Mass Index 28.47 04/13/2024 10:15 AM CDT Plan of Treatment Not on file Procedures Procedure Name Priority Date/Time Associated Diagnosis Comments HEPATITIS PANEL, ACUTE Routine 03/16/2022 11:45 AM CDT Blastic phase chronic myeloid leukemia (HCC) from Last 3 Months or Most Recently Relevant to Health Maintenance Results * Hepatitis panel, acute (03/16/2022 11:45 AM CDT) Hep A IgM Nonreactive Nonreactive [facility] Comment: Interpretive Data: If Hep A IgM Ab is reported as Equivocal, a new sample should be drawn in two weeks for testing. Current interpretive data was last revised on 19. Hep B core IgM Nonreactive Nonreactive [facility] Comment: Interpretive Data If HepB Core IgM Ab is reported as Equivocal, a new sample should be drawn in two weeks for testing. Current interpretive data was last revised on 19. Hep C Ab Nonreactive Nonreactive [facility] Comment:Antibodies to HCV no t detected. Does NOT exclude the possibility of recent exposure to HCV. HepBsAg Nonreactive Nonreactive [facility] Blood 03/16/2022 11:4 5 AM CDT 03/16/2022 11:59 AM CDT us Elicia Espinal MD LAB MICROBIOLOGY - GENERAL ORDERABLES Edited Result - Final [facility] Department [place] [address] from Last 3 Months or Most Recently Relevant to Health Maintenance Additional Health Concerns Infection Onset Date Last Indicated C. difficile 04/14/2022 04/14/2022 Insurance [facility] REPLACED BY [facility] [place] [address] Advance Directives For more information, please contact: [phone] * Full Code (Latest Code Status on [...] 6:07 PM 11/28/2021 1:36 PM Care Teams Morning Show Newscast Producer Relationship Specialty Start Date End Date Domingo Chavez MD PCP - General Internal Medicine 09/05/21 Elicia Espinal MD Medical Oncologist/Professor Of Geology Hematology 09/20/21 Dorinda Breen MD [address] [facility] [address] [address] Consulting Physician Gastroenterology 01/30/22
--- OUTSIDE RECORDS SUMMARY | 2025-02-18 14:21 | XMS_ITS | Clinical Summary ---
Author Organization [facility] Address [address] [place] [address] Care Team Providers Care Cardroom Attendant Name Role Phone Domingo Chavez MD Primary Care Provide r Allergies Active Allergy Reactions Criticality Noted Date Comments Chlorhexidine Itching,Redness Medium 01/30/2022 Medications LORazepam (ATIVAN) 0.5 MG tabletIndicatio ns:Primary insomnia TAKE 1 TABLET (0.5 MG TOTAL) BY MOUTH NIGHTLY. NEEDED. 90 tablet 5 Active amoxicillin-cla vulanate (AUGMENTIN) 875-125 MG tabletIndicatio ns:Acute recurrent frontal sinusitis Take 1 tablet (875 mg total) by mouth 2 (two) times daily for 10 days. 20 tablet 5 02/19/20 25 Active LORazepam (ATIVAN) 0.5 MG tabletIndicatio ns:Primary insomnia Take 1 tablet (0.5 mg total) by mouth nightly. As needed. 90 tablet 5 02/04/20 25 Discontinued Active Problems Problem Noted Date Diagnosed Date Primary insomnia 02/11/2025 Polyp of colon, unspecified part of colon, unspe cified type 02/11/2025 H/O stem cell transplant ([facility]/HCC) 01/06 Subcapsular hematoma of liver 09/24/2021 Overview (02/08/2025): 2/2 spontaneous rupture vs drain placement. Acute drop in hgb on 09/23 requiring multiple PRBCs transfusion. 09/24 CT CAP new with subcapsular liver hematoma 2/2 venous bleed. Chronic myeloid leukemia, BC R/ABL-positive, in remission ([facility]) 09/12/2021 Overview (01/07/2024): Last Assessment & Plan: Presented with fevers, elevated WBC with 12/6 BMBx + for AML with FLT-3 negative -MyeloSeq pending -Induction with 7+3+Dasatinib started 09/12/21. Dasatinib began on D8. -OI: acyclovir -F/u BMT recs Blastic phase chronic myeloid leukemia ([facility]) 09/12/2021 Overview (02/12/2024): Presented with fevers, elevated WBC with 12/6 BMBx + for AML with FLT-3 negative -MyeloSeq pending -Induction with 7+3 Angelica)+Dasatinib started 09/12/21. Dasatinib began on D8. Discotinued due to pericardial and pleural effusions. -F/u BMT recs Switched to nilotinib 400 mg BID. Resolved Problems Problem Noted Date Diagnosed Date Resolved Date Hypogammaglobulinemia ([facility]) 05/08/2022 01/07/2024 Chronic ITP (idiopathic thro mbocytopenia) ([facility]) 05/04/2022 01/07/2024 Pancytopenia 10/31/2021 02/11/2025 Subcapsular hematoma of liver 09/24/2021 01/07/2024 Overview (01/07/2024): 2/2 spontaneous rupture vs drain placement. Acute drop in hgb on 09/23 requiring multiple PRBCs transfusion. 09/24 CT CAP new with subcapsular liver hematoma 2/2 venous bleed. Last Assessment & Plan: 2/2 spontaneous rupture vs drain placement. Acute drop in hgb on 09/23 requiring multiple PRBCs transfusion. 09/24 CT CAP new with subcapsular liver hematoma 2/2 venous bleed. -CBC every 6 hour -Serial abd exam -Transfuse to keep hgb > 8.0 ERIC (obstructive sleep apnea) 09/21/2021 01/07/2024 Overview (01/07/2024): Continue home cpap Last Assessment & Plan: History of ERIC. Continue home cpap Foreign body of finger of ri ght hand, initial encounter 09/27/2020 09/15/2021 Dyshidrotic eczema 07/29/2020 No known health problems 05/19/201808/2020 Encounters Date Type Department Care Team Description 02/08/2025 4:00 PM CDT Office Visit [facility] [address] [place] [address] Domingo Chavez MD Physical (yearly); Other (CSA and UDS) 02/08/2025 Travel 12/08/[address] [facility] [address] [place] [address] Ryder Chavez FNP Follow Up Call (UPDATE) from Last 3 Months Immunizations Immunization Administration Dates Next Due Dtap (Acel-Immune) 03/18/2023, 3,05/17/1975,11/18/18 74,1973,1973 Dtap (Generic) 05/17/1975, 4,1973,06/26/19 71 Hepatitis B 07/01/2023,03/18/2023,01/14/2023 Hepatitis B (Recombivax Hb 40 Mcg) 07/01/2023,,01/14/2023 Hib (Omni-Hib) 07/01/2023,03/18/2023,01/14/2023 Influenza Adult (Generic) 07/30/2022,08/12/2016 MMR (Generic) 04/20/1974 MMR (MMRII) 10/21/2024,07/15/2024 Pneumococcal (Pneumovax 23) 10/14/2023 Pneumococcal (Prevnar 13) 07/01/2023,03/18/2023, 01/14/2023 Polio IPV (Ipol) 10/14/2023,03/18/2023, Shingrix 10/14/2023,07/01/2023 Tdap (Generic) 07/01/2023,06/30/1987 Social History Tobacco Use Types Packs/Day Years Used Date Smoking Tobacco: Every Day Cigarettes 1 25 Passive Smoke Exposure: Past Smokeless Tobacco: Never Tobacco Cessation:Ready to Q uit: No; Counseling Given: Yes Alcohol Use Standard Drinks/Week Comments Yes 0 (1 standard drink = 0.6 oz pur e alcohol) Socially PHQ-2 Answer Date Recorded Patient Health Questionnaire-2 Score 0 02/08/2025 Sex and Gender Information Value Date Recorded Sex Assigned at Male 11/02/2024 8:36 AM GRINDING MACHINE TENDER Legal Sex Male 7:24 PM CDT Gender Identity Not on file Sexual Orientation Not on file Last Filed Vital Signs Vital Sign Reading Time Taken Comments Blood Pressure 124/74 11/02/2024 2:57 PM GRINDING MACHINE TENDER Pulse 75 02/08/2025 4:05 PM CDT Temperature 36.2 C (97.2 F) 02/08/2025 4:05 PM CDT Respiratory Rate 20 02/08/2025 4:05 PM CDT Oxygen Saturation 97% 02/08/2025 4:05 PM CDT Inhaled Oxygen Concentration - - Weight 99.6 kg (219 lb 9.6 oz) 02/08/2025 4:05 P M CDT Height 188 cm (6' 2 ) 11/02/2024 2:57 PM GRINDING MACHINE TENDER Body Mass Index 28.19 11/02/2024 2:57 PM GRINDING MACHINE TENDER Plan of Treatment Health Maintenance Due Date Last Done Comments COVID-19 Vaccine (#1) 1980 Annual Physical 02/08/2026 02/08/2025 Pneumococcal Vaccine: 50+ Years (3 of 3 - PPSV23, PCV20 or PCV21) 10/14/2028 10/14/2023, 07/01/2023, 03/18/2023, Additional history exists Colorectal Cancer Screening Colonoscopy (10 Years) 03/24/2031 03/24/2021 DTaP, Tdap and Td Vaccines (9 - Td or Tdap) 07/01/2033 07/01/2023, 03/18/2023, 01/14/2023, Additional history exists Hepatitis B Vaccines Completed 07/01/2023, 07/01/2023, 03/18/2023, Additional history exists Hepatitis C Completed 10/14/2023 Zoster Vaccines Completed 10/14/2023, 07/01/2023 PHQ-2 (Physician [place]) Completed 02/08/2025 Meningococcal B Vaccine Aged Out No l onger eligible based on patient's age to complete this topic Meningococcal Vaccine Aged Out No jimi vanessa eligible based on patient's age to complete this topic RSV Immunizations Under 20 Months Aged Out No longer eligible based on patient's age to complete this topic Procedures Procedure Name Priority Date/Time Associated Diagnosis Comments MG/PCCL UDS SCREEN Routine 02/08/2025 4: 28 PM CDT Medication management COLONOSCOPY GENERIC (SCAN ORDER) 03/24/2021 from Last 3 Months or Most Recently Relevant to Health Maintenance Results * (ABNORMAL) MG/PCCL UDS SCREEN (02/08/2025 4:28 PM CDT) FENTANYL SCREEN (U) NEGATIVE <0.5 ng/mL [facility] Comment: See Note A See Note A MORPHINE (U) NEGATIVE <10 ng/mL [facility] Comment: See Note A See Note A AMPHETAMINES PM NEGATIVE <500 ng/mL [facility] Comment: See Note A See Note A BARBITURATES PM (U) NEGATIVE <300 ng/mL [facility] Comment: See Note A See Note A BENZODIAZEPINES PM (U) POSITIVE(A) <100 ng/mL [facility] Comment: See Note A See Note A COCAINE METABOLITE PM (U) NEGATIVE <150 ng/mL [facility] Comment: See Note A See Note A MARIJUANA METABOLITE PM (U) NEGATIVE <20 ng/mL [facility] Comment: See Note A See Note A METHADONE PM (U) NEGATIVE <100 ng/mL [facility] Comment: See Note A See Note A OPIATES PM (U) NEGATIVE <100 ng/mL [facility] Comment: See Note A See Note A OXYCODONE PM (U) NEGATIVE <100 ng/mL [facility] Comment: See Note A See Note A CREATININE RANDOM (U) 152.2 > or = 20.0 mg/dL [facility] JESSICA GUTIERREZ pH PM (U) 6.2 4.5 - 9.0 [facility] J[facility] GUTIER[facility] OXIDANT NEGATIVE <200 mcg/mL [facility] JESSICA GUTIERREZ NOTE [facility] Comment: This drug testing is for medical treatment only. Analysis was performed as non-forensic testing and these results should be used only by healthcare providers to render diagnosis or treatment, or to monitor progress of medical conditions. Note A: The results are presumptive; based only on screening methods, and they have not been confirmed by a definitive method. LDT Notes: Confirmation tests were developed and their analytical performance characteristics have been determined by [facility]. It has not been cleared or approved by the FDA. This assay has been validated pursuant to the CLIA regulations and is used for clinical purposes. Healthcare Providers needing Interpretation assistance, please contact us at [phone] ( ) M-F, 8am to 10pm EST URINE SPECIMEN / Unknown 02/08/2025 4:28 PM CDT 02/10/2025 4:06 AM CDT Narrative Resulting Agency Comment Performing Organization Information: Site ID: [id number] [facility] Address: [address] [place] [address] Director: Carlos Stinson Site ID: [id number] [facility] Address: [id number] [place] [address] Director: Ricki Cano MD Domingo Chavez MD URINE ORDERABLES Ammy l Result EILEEN [facility] EILEEN TOM CECILTON [address] [place], [place] [id number] [place] [address] [place], [place] [address] * COLONOSCOPY GENERIC (03/24/2021) 03/24/2021 Narrative 03/24/2021 Ordered by an unspecified provider. us Documents Scanned SCANNING Final Result from Last 3 Months or Most Recently Relevant to Health Maintenance Insurance [employer] Care Teams Cardroom Attendant Relationship Specialty Start Date End Date Domingo Chavez MD PCP - General INTERNAL MEDICINE 08/03/19
--- OUTSIDE RECORDS SUMMARY | 2025-02-18 14:21 | XMS_ITS | Encounter Summary ---
Author Organization [facility] Address [address] [place] [address] Phone Care Team Providers Care Silver Designer Name Role Phone Domingo Chavez MD Primary Care Provider Elicia Espinal MD Unavailable [phone] Dorinda Breen MD Unavailable [phone] Encounter Details Date Type Department Care Team (Late st Contact Info) Description 11/13/2021 Telephone [facility] Oncology [address] [facility] Advanced Medicine 7th [place] [address] [place] [address] Estrella Figueroa Social History Tobacco Use Types Packs/Day Years Used Date Smoking Tobacco: Former Cigarettes 1 40.4 S tarted: 1985 Smokeless Tobacco: Never Sex and Gender Information Value Date Recorded Sex Assigned at Not on file Legal Sex Male 8:08 PM COMPUTER TESTER Gender Identity Male 10/04/2021 8:04 PM COMPUTER TESTER Sexual Orientation Not on file documented as [...] documented as of this encounter Care Teams Silver Designer Relationship Specialty Start Date End Date Domingo Chavez MD PCP - General Internal Medicine 09/05/21 Elicia Espinal MD Medical Oncologist/Rotor Blade Installer Hematology 09/20/21 Dorinda Breen MD [address] [facility] [address] [place] [address] Consulting Physician Gastroenterology 01/30/22 documented as of this encounter
--- OUTSIDE RECORDS SUMMARY | 2025-02-18 14:21 | XMS_ITS | Encounter Summary ---
Author Organization [facility] Address [address] [place] [address] Phone Care Team Providers Care Payment Collector Name Role Phone Domingo Chavez MD Primary Care Provider Elicia Espinal MD Unavailable Dorinda Breen MD Unavailable [phone] Encounter Details Date Type Department Care Team (Late st Contact Info) Description 12/12/2021 Orders Only [facility] Bone Marrow Transplant [address] [facility] Advanced Medicine 7th Floor, [place] [address] Elicia Espinal MD [address] DIV IM BONE MARROW TRANSPLANT, [address] [place], [place] [id number] 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) Social History Tobacco Use Types Packs/Day Years Used Date Smoking Tobacco: Former Cigarettes 1 40.4 S tarted: 1985 Smokeless Tobacco: Never Sex and Gender Information Value Date Recorded Sex Assigned at Not on file Legal Sex Male 8:08 PM SENIOR PROJECT MANAGER ENGINEERING Gender Identity Male 10/04/2021 8:04 PM SENIOR PROJECT MANAGER ENGINEERING Sexual Orientation Not on file documented as of this encounter Progress Notes * Renuka Dupont - 12/12/2021 9:05 AM CST cbc documented in this encounter Plan of Treatment Not on file documented as of this encounter Results * (ABNORMAL) CBC with auto differential (01/22/2022 10:30 AM CDT) WBC 8.2 3.8 - 9.8 K/cumm [facility] Comment:Testing performed by : [facility], [address] [place] [phone] Hgb 10.8(L) 13.8 - 17.2 g/dL [facility] Comment:Testing performed by : [facility], [address] [place] [phone] Hct 31.7(L) 40.7 - 50.3 % [facility] Comment:Testing performed by : [place] [phone] [address] 140 - 440 K/cumm [facility] Comment:Testing performed by : [address] [address] MPV 7.6 6.8 - 10.4 fL [facility] Comment:Testing performed by : [address] [phone] RBC 3.28(L) 4.50 - 5.70 M/cumm [facility] Comment:Testing performed by : [address] [address] MCV 96.6 80.0 - 97.6 fL [facility] Comment:Testing performed by : [address] [phone] MCH 32.9 26.7 - 33.7 pg [facility] Comment:Testing performed by : [address] [phone] MCHC 34.1 32.7 - 35.5 g/dL [facility] Comment:Testing performed by : [address] [address] RDW CV 18.0(H) 11.8 - 14.6 % [facility] Comment:Testing performed by : [address] [phone] NRBC abs 0.00 0.00 - 0.01 K/cumm [facility] Comment:Testing performed by : [facility], [address] [place] [phone] Blood 01/22/2022 10:3 0 AM CDT 01/22/2022 10:32 AM CDT us Elicia Espinal MD LAB BLOOD ORDERABLES Final Result Performing Organization Address City/State/[facility] Co de Phone Number [facility] Department [place] [address] documented in this encounter Visit Diagnoses Diagnosis Acute myeloid leukemia not having achieved remission (HCC)- Primary documented in this encounter Additional Health Concerns Infection Onset Date Last Indicated Resolved Time C. difficile Comment:04/06/2022 IP Review: per current [...] documented as of this encounter Care Teams Payment Collector Relationship Specialty Start Date End Date Domingo Chavez MD PCP - General Internal Medicine 09/05/21 Elicia Espinal MD Medical Oncologist/Menagerie Caretaker Hematology 09/20/21 Dorinda Breen MD [address] [facility] [address] [address] Consulting Physician Gastroenterology 01/30/22 documented as of this encounter
--- NOTE | 2025-02-19 11:06 | SUR.PREOP ---
patient has additional cardiology notes and testing that will be provided today for review
--- NOTE | 2025-02-23 16:14 | PC.NURSE ---
Late note for 02-19-2025 1026, Patient's EKG showed a Left Anterior Fascicular block which is a conduction abnormality in the heart that affects the left anterior fascicle, one of the two main branches of the left bundle branch. I discussed this with Dr Cartagena who without hesitation ordered patient to have a stress test before surgery. 2618 I get a call from Dr Cartagena who has been talking with patient's and he reversed his decision about the stress test.
[2025-02-25] VITALS (9 sets, daily range): BP systolic 117–148; BP diastolic 69–85; PULSE 54–73; RESP 12–18; TEMP 36.7–36.8; O2SAT 60–100
--- OUTSIDE RECORDS SUMMARY | 2025-02-25 02:01 | XMS_ITS | Encounter Summary ---
Author Organization [facility] Address [address] [place] [address] Phone Care Team Providers Care Body Presser Name Role Phone Domingo Chavez MD Primary Care Provider Elicia Espinal MD Unavailable [phone] Dorinda Breen MD Unavailable Encounter Details Date Type Department Care Team (Late st Contact Info) Description 11/13/2021 Telephone [facility] Oncology [address] [facility] 7th [place] [address] [place] [address] Estrella Figueroa Social History Tobacco Use Types Packs/Day Years Used Date Smoking Tobacco: Former Cigarettes 1 40.4 S tarted: 1985 Smokeless Tobacco: Never Sex and Gender Information Value Date Recorded Sex Assigned at Not on file Legal Sex Male 8:08 PM FLOOR SANDER Gender Identity Male 10/04/2021 8:04 PM FLOOR SANDER Sexual Orientation Not on file documented as [...] documented as of this encounter Care Teams Body Presser Relationship Specialty Start Date End Date Domingo Chavez MD PCP - General Internal Medicine 09/05/21 Elicia Espinal MD Medical Oncologist/Financial Legal Assistant Hematology 09/20/21 Dorinda Breen MD [address] [address] Consulting Physician Gastroenterology 01/30/22 documented as of this encounter
--- OUTSIDE RECORDS SUMMARY | 2025-02-25 02:01 | XMS_ITS | Encounter Summary ---
Author Organization [facility] Address [address] [place] [address] Phone Care Team Providers Care Chart Writer Name Role Phone oDmingo Chavez MD Primary Care Provider Elicia Espinal MD Unavailable [phone] Dorinda Breen MD Unavailable [phone] Encounter Details Date Type Department Care Team (Late st Contact Info) Description 11/14/2021 Telephone [facility] Bone Marrow Transplant [address] [facility] 7th Floor, [place] [address] Renuka Atwood V. Social History Tobacco Use Types Packs/Day Years Used Date Smoking Tobacco: Former Cigarettes 1 40.4 S tarted: 1985 Smokeless Tobacco: Never Sex and Gender Information Value Date Recorded Sex Assigned at Not on file Legal Sex Male 8:08 PM ATTENDANT CHILD ACTIVITY Gender Identity Male 10/04/2021 8:04 PM ATTENDANT CHILD ACTIVITY Sexual Orientation Not on file documented as [...] no diarrhea in the past 48 hours Rolsyn Linares RN 01/05/2022 IP Review: in order [...] documented as of this encounter Care Teams Chart Writer Relationship Specialty Start Date End Date Domingo Chavez MD PCP - General Internal Medicine 09/05/21 Elicia Espinal MD Medical Oncologist/Relay Repairer Hematology 09/20/21 Dorinda Breen MD [address] [facility] [address] [place] [address] Consulting Physician Gastroenterology 01/30/22 documented as of this encounter
--- OUTSIDE RECORDS SUMMARY | 2025-02-25 02:01 | XMS_ITS | Encounter Summary ---
Author Organization [facility] Address [address] [place] [address] Phone Care Team Providers Care Sales Performance Manager Name Role Phone Domingo Chavez MD Primary Care Provider Elicia Espinal MD Unavailable Dorinda Breen MD Unavailable [phone] Encounter Details Date Type Department Care Team (Late st Contact Info) Description 12/12/2021 Orders Only [facility]row Transplant [address] [facility] Advanced [facility] 7th Floor, [place] [address] Elicia Espinal MD [address] DIV IM BONE MARROW TRANSPLANT, [address] [place] [address] 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) Social History Tobacco Use Types Packs/Day Years Used Date Smoking Tobacco: Former Cigarettes 1 40.4 S tarted: 1985 Smokeless Tobacco: Never Sex and Gender Information Value Date Recorded Sex Assigned at Not on file Legal Sex Male 8:08 PM IMAGE EDITOR Gender Identity Male 10/04/2021 8:04 PM IMAGE EDITOR Sexual Orientation Not on file documented as of this encounter Progress Notes * Renuka Dupont - 12/12/2021 9:05 AM CST cbc documented in this encounter Plan of Treatment Not on file documented as of this encounter Results * (ABNORMAL) CBC with auto differential (01/22/2022 10:30 AM CDT) WBC 8.2 3.8 - 9.8 K/cumm [facility] Comment:Testing performed by : [facility], [address] [place] [phone] Hgb 10.8(L) 13.8 - 17.2 g/dL [facility] Comment:Testing performed by : [facility], [address] [place] [phone] Hct 31.7(L) 40.7 - 50.3 % [facility] Comment:Testing performed by : [place] [phone] Plt 203 140 - 440 K/cumm [facility] Comment:Testing performed by : [facility], [address] [place] [phone] MPV 7.6 6.8 - 10.4 fL [facility] Comment:Testing performed by : [address] [phone] RBC 3.28(L) 4.50 - 5.70 M/cumm [facility] Comment:Testing performed by : [address] [phone] MCV 96.6 80.0 - 97.6 fL [facility] Comment:Testing performed by : [facility], [address] [place] [phone] MCH 32.9 26.7 - 33.7 pg [facility] Comment:Testing performed by : [address] [phone] MCHC 34.1 32.7 - 35.5 g/dL [facility] Comment:Testing performed by : [address] [phone] RDW CV 18.0(H) 11.8 - 14.6 % [facility] Comment:Testing performed by : [facility], [address] [place] [phone] NRBC abs 0.00 0.00 - 0.01 K/cumm [facility] Comment:Testing performed by : [facility], [address] [facility] [phone] Blood 01/22/2022 10:3 0 AM CDT 01/22/2022 10:32 AM CDT Elicia Espinal MD LAB BLOOD ORDERABLES Final Result [facility] Department [place] [address] documented in this encounter Visit Diagnoses Diagnosis [...] documented as of this encounter Care Teams Sales Performance Manager Relationship Specialty Start Date End Date Domingo Chavez MD PCP - General Internal Medicine 09/05/21 Elicia Espinal MD Medical Oncologist/Pit Inspector Hematology 09/20/21 Dorinda Breen MD [address] [facility] [address] [address] Consulting Physician Gastroenterology 01/30/22 documented as of this encounter
--- OUTSIDE RECORDS SUMMARY | 2025-02-25 02:01 | XMS_ITS | Referral Summary ---
Author Organization [facility] Address [address] [place] [address] Care Team Providers Care Fur Dry Cleaner Name Role Phone Domingo Chavez MD Primary Care Provider Elicia Espinal MD Unavailable [phone] Dorinda Breen MD Unavailable [phone] Allergies Active Allergy Reactions Criticality Noted [...] FluBu4 PT Cy haplo Clinical Trial Itacitinib [id number] GVHD prophylaxis Reason for Admission Haplo SCT Discharge Planning Anticipated Discharge Date 04/27 Patient Education Completed Discharge education and bag provided to pt/ 04/27 Issue to be Resolved Before Discharge Discharge Disposition Home Requests Sent to Case Management and/or Medical Assistants Letermovir here specialty Post-Discharge Follow-Up Living Situation/Distance from [facility] 45 mins Caregiver Spouse, Iveth Lab/Transfusion Frequency 2x/weekly Prefers to keep all treatments at [facility] Venous Access & Care trifusion Post-Discharge Office Visit (H30) [facility]/H30/IVF 04/30 Miscellaneous Notes: Problem Noted Date Diagnosed Date Need for vaccination 09/20/2022 COVID-19 06/07/2022 Hypogammaglobulinemia 05/08/2022 Chronic ITP (idiopathic thrombocytopenia) 2021 Pancytopenia 10/31/2021 Severe malnutrition 10/24/2021 Subcapsular hematoma of liver 09/24/2021 Assessment & Plan (09/25/2021 11:47 AM HOME APPLIANCES MECHANIC): 2/2 spontaneous rupture vs drain placement. Acute drop in hgb on 09/23 requiring multiple PRBCs transfusion. 09/24 CT CAP new with subcapsular liver hematoma 2/2 venous bleed. -CBC every 6 hour -Serial abd exam -Transfuse to keep hgb > 8.0 ERIC (obstructive sleep apnea) 09/21/2021 Assessment & Plan (09/22/2021 12:26 PM HOME APPLIANCES MECHANIC): History of ERIC. Continue home cpap Chronic myeloid leukemia, Bl ast Phase, BCR/ABL-positive, in remission 09/12/2021 Assessment & Plan (09/25/2021 11:46 AM HOME APPLIANCES MECHANIC): Presented with fevers, elevated WBC with 09/11 BMBx + for AML with FLT-3 negative -MyeloSeq pending -Induction with 7+3+Dasatinib started 09/12/21. Dasatinib began on D8. -OI: acyclovir -F/u BMT recs H/O stem cell transplant Resolved Problems Problem Noted Date Diagnosed Date Resolved Date Elevated transaminase level 09/22/2021 04/30/2022 Assessment & Plan (09/25/2021 11:47 AM HOME APPLIANCES MECHANIC): Likely 2/2 poor profusion with cardial tamponade. AST/ALT elevated, but now down trending. AST 502 (peak 3654), AST 1779 (peak 2903). -Improved BP with drain placement and down trending AST/ALT -Trend CMP TANGELA (acute kidney injury) 09/21/2021 Assessment & Plan (09/25/2021 11:46 AM HOME APPLIANCES MECHANIC): Likely 2/2 prerenal etiology in setting of decreased flow with pericardial effusion vs dehydration with poor PO intake at home . Baseline Cr ~ 0.6. Now with down trending BUN/Cr. Cr 1.17 (2.5) with peak of 3.12. Stable UOP- 1655 cc over last 24 hours -Trend BUN/Cr -Monitor UOP -Avoid nephrotoxins Shock 09/21/2021 04/30/2022 Assessment & Plan (09/25/2021 11:45 AM HOME APPLIANCES MECHANIC): 2/2 pericardial effusion with tamponade vs sepsis. [...] 04/30/2022 Assessment & Plan (09/25/2021 11:47 AM HOME APPLIANCES MECHANIC): likely in setting of poor po intake. Na 134 (133) -fluid resuscitation with NS as needed -daily BMP Leukocytosis 09/08/2021 09/21/2021 Cardiac tamponade 09/08/2021 04/30/2022 Overview (09/22/2021): Added automatically from request for surgery [id number] Assessment & Plan (09/25/2021 11:43 AM HOME APPLIANCES MECHANIC): Likely 2/2 dasatinib. Developed chest pain with CT chest showing small pericardial effusion. 09/21 echo with large pericardial effusion with tamponade physiology. Consulted Cardio Oncology. To laborer filter plant 09/22 for pericardial drain placement. Initial output [...] on file Legal Sex Male 8:08 PM HOME APPLIANCES MECHANIC Gender Identity Male 10/04/2021 8:04 PM HOME APPLIANCES MECHANIC Sexual Orientation Not on file Last Filed Vital Signs Vital Sign Reading Time Taken Comments Blood Pressure 116/75 10/21/2024 2:02 PM HOME APPLIANCES MECHANIC Pulse 62 10/21/2024 2:02 PM HOME APPLIANCES MECHANIC Temperature 36.4 C (97.5 F) 10/21/2024 2:02 PM HOME APPLIANCES MECHANIC Respiratory Rate 18 10/21/2024 2:02 PM HOME APPLIANCES MECHANIC Oxygen Saturation 97% 10/21/2024 2:02 PM HOME APPLIANCES MECHANIC Inhaled Oxygen Concentration - - Weight 103.3 kg (227 lb 12.8 oz) 2023 10:32 AM CDT Height 190.5 cm (6' 3 ) 10/21/2024 2:02 PM HOME APPLIANCES MECHANIC Body Mass Index 28.47 04/13/2024 10:15 AM CDT Plan of Treatment Not on file Procedures Procedure Name Priority Date/Time Associated Diagnosis Comments HEPATITIS PANEL, ACUTE Routine 03/16/2022 11:45 AM CDT Blastic phase chronic myeloid leukemia (HCC) from Last 3 Months or Most Recently Relevant to Health Maintenance Results * Hepatitis panel, acute (03/16/2022 11:45 AM CDT) Hep A IgM Nonreactive Nonreactive [facility] Comment: Interpretive Data: If Hep A IgM Ab is reported as Equivocal, a new sample should be drawn in two weeks for testing. Current interpretive data was last revised on 19. Hep B core IgM Nonreactive Nonreactive [facility] Comment: Interpretive Data If HepB Core IgM Ab is reported as Equivocal, a new sample should be drawn in two weeks for testing. Current interpretive data was last revised on 19. Hep C Ab Nonreactive Nonreactive [facility] Comment:Antibodies to HCV no t detected. Does NOT exclude the possibility of recent exposure to HCV. HepBsAg Nonreactive Nonreactive [facility] Blood 03/16/2022 11:4 5 AM CDT 03/16/2022 11:59 AM CDT us Elicia Espinal MD LAB MICROBIOLOGY - GENERAL ORDERABLES Edited Result - Final [facility] Department [place] [address] from Last 3 Months or Most Recently Relevant to Health Maintenance Additional Health Concerns Infection Onset Date Last Indicated C. difficile 04/14/2022 04/14/2022 Insurance [facility] TR[facility]ANT [facility] [place] [address] Advance Directives For more information, please contact: [phone] * Full Code (Latest Code Status on [...] 6:07 PM 11/28/2021 1:36 PM Care Teams Fur Dry Cleaner Relationship Specialty Start Date End Date Domingo Chavez MD PCP - General Internal Medicine 09/05/21 Elicia Espinal MD Medical Oncologist/Forepart Reducer Hematology 09/20/21 Dorinda Breen MD [address] [facility] [address] [place] [address] Consulting Physician Gastroenterology 01/30/22
--- OUTSIDE RECORDS SUMMARY | 2025-02-25 02:01 | XMS_ITS ---
Author Organization [facility] Address [address] [place] [address] Care Team Providers Care Oracle Technical Architect Name Role Phone Domingo Chavez MD Primary Care Provider Elicia Espinal MD Unavailable [phone] Dorinda Breen MD Unavailable [phone] Active Problems Patient Care Coordination No te Formatting of this note is d ifferent from the original. BMT Inpatient Care Coordination Overview Diagnosis Blast Phase CML/AML Floor 8800 Treatment Plan FluBu4 PT Cy haplo Clinical Trial Itacitinib [id number] GVHD prophylaxis Reason for Admission Haplo SCT Discharge Planning Anticipated Discharge Date 04/27 Patient Education Completed Discharge education and bag provided to pt/ 04/27 Issue to be Resolved Before Discharge Discharge Disposition Home Requests Sent to Case Management and/or Medical Assistants Letermovir here specialty Post-Discharge Follow-Up Living Situation/Distance from [facility] 45 mins Caregiver SpouseIveth Lab/Transfusion Frequency 2x/weekly Prefers to keep all treatments at [facility] Venous Access & Care trifusion Post-Discharge Office Visit (H30) [facility]/H30/IVF 04/30 Miscellaneous Notes: Problem Noted Date Diagnosed Date Need for vaccination 09/20/2022 COVID-19 06/07/2022 Hypogammaglobulinemia 05/08/2022 Chronic ITP (idiopathic thrombocytopenia) 2021 Pancytopenia 10/31/2021 Severe malnutrition 10/24/2021 Subcapsular hematoma of liver 09/24/2021 Assessment & Plan (09/25/2021 11:47 AM VETERINARY RECEPTIONIST): 2/2 spontaneous rupture vs drain placement. Acute drop in hgb on 09/23 requiring multiple PRBCs transfusion. 09/24 CT CAP new with subcapsular liver hematoma 2/2 venous bleed. -CBC every 6 hour -Serial abd exam -Transfuse to keep hgb > 8.0 ERIC (obstructive sleep apnea) 09/21/2021 Assessment & Plan (09/22/2021 12:26 PM VETERINARY RECEPTIONIST): History of ERIC. Continue home cpap Chronic myeloid leukemia, Bl ast Phase, BCR/ABL-positive, in remission 09/12/2021 Assessment & Plan (09/25/2021 11:46 AM VETERINARY RECEPTIONIST): Presented with fevers, elevated WBC with 09/11 [...] Treatment Medications Discontinue Reason Plan Provider Cycles - INPT/OP - RSH - Heme/BMT - Itacitinib for GVHD prophylaxis 03/15/2022 01/14/2023 [id number] itacitinib SR (2019-03-114/I -[id number]) Therapy Complete Elicia Espinal MD 2 of [...] 04/30/2022 Assessment & Plan (09/25/2021 11:47 AM VETERINARY RECEPTIONIST): Likely 2/2 poor profusion with cardial tamponade. AST/ALT elevated, but now down trending. AST 502 (peak 3654), AST 1779 (peak 2903). -Improved BP with drain placement and down trending AST/ALT -Trend CMP TANGELA (acute kidney injury) 09/21/2021 Assessment & Plan (09/25/2021 11:46 AM VETERINARY RECEPTIONIST): Likely 2/2 prerenal etiology in setting of decreased flow with pericardial effusion vs dehydration with poor PO intake at home . Baseline Cr ~ 0.6. Now with down trending BUN/Cr. Cr 1.17 (2.5) with peak of 3.12. Stable UOP- 1655 cc over last 24 hours -Trend BUN/Cr -Monitor UOP -Avoid nephrotoxins Shock 09/21/2021 04/30/2022 Assessment & Plan (09/25/2021 11:45 AM VETERINARY RECEPTIONIST): 2/2 pericardial effusion with tamponade vs sepsis. [...] 04/30/2022 Assessment & Plan (09/25/2021 11:47 AM VETERINARY RECEPTIONIST): likely in setting of poor po intake. Na 134 (133) -fluid resuscitation with NS as needed -daily BMP Leukocytosis 09/08/2021 09/21/2021 Cardiac tamponade 09/08/2021 04/30/2022 Overview (09/22/2021): Added automatically from request for surgery [id number] Assessment & Plan (09/25/2021 11:43 AM VETERINARY RECEPTIONIST): Likely 2/2 dasatinib. Developed chest pain with CT chest showing small pericardial effusion. 09/21 echo with large pericardial effusion with tamponade physiology. Consulted Cardio Oncology. To medical lab scientist 09/22 for pericardial drain placement. Initial output 650 cc. Drain removed on 09/24. -Continue colchicine, hold NSAID with TANGELA -Monitor output -F/u cultures -f/u flow cytometry
--- OUTSIDE RECORDS SUMMARY | 2025-02-25 02:02 | XMS_ITS | Clinical Summary ---
Author Organization [facility] Address [address] [place] [address] Care Team Providers Care Brake Mechanic Name Role Phone Domingo Chavez MD Primary Care Provider Elicia Espinal MD Unavailable [phone] Dorinda Breen MD Unavailable [phone] Allergies Active Allergy Reactions Criticality Noted [...] FluBu4 PT Cy haplo Clinical Trial Itacitinib [id number] GVHD prophylaxis Reason for Admission Haplo SCT Discharge Planning Anticipated Discharge Date 04/27 Patient Education Completed Discharge education and bag provided to pt/ 04/27 Issue to be Resolved Before Discharge Discharge Disposition Home Requests Sent to Case Management and/or Medical Assistants Letermovir here specialty Post-Discharge Follow-Up Living Situation/Distance from [facility] 45 mins Caregiver Spouse, Iveth Lab/Transfusion Frequency 2x/weekly Prefers to keep all treatments at [facility] Venous Access & Care trifusion Post-Discharge Office Visit (H30) [facility]/H30/IVF 04/30 Miscellaneous Notes: Problem Noted Date Diagnosed Date Need for vaccination 09/20/2022 COVID-19 06/07/2022 Hypogammaglobulinemia 05/08/2022 Chronic ITP (idiopathic thrombocytopenia) 2021 Pancytopenia 10/31/2021 Severe malnutrition 10/24/2021 Subcapsular hematoma of liver 09/24/2021 Assessment & Plan (09/25/2021 11:47 AM WAREHOUSE TECHNICIAN): 2/2 spontaneous rupture vs drain placement. Acute drop in hgb on 09/23 requiring multiple PRBCs transfusion. 09/24 CT CAP new with subcapsular liver hematoma 2/2 venous bleed. -CBC every 6 hour -Serial abd exam -Transfuse to keep hgb > 8.0 ERIC (obstructive sleep apnea) 09/21/2021 Assessment & Plan (09/22/2021 12:26 PM WAREHOUSE TECHNICIAN): History of ERIC. Continue home cpap Chronic myeloid leukemia, Bl ast Phase, BCR/ABL-positive, in remission 09/12/2021 Assessment & Plan (09/25/2021 11:46 AM WAREHOUSE TECHNICIAN): Presented with fevers, elevated WBC with 09/11 BMBx + for AML with FLT-3 negative -MyeloSeq pending -Induction with 7+3+Dasatinib started 09/12/21. Dasatinib began on D8. -OI: acyclovir -F/u BMT recs H/O stem cell transplant Resolved Problems Problem Noted Date Diagnosed Date Resolved Date Elevated transaminase level 09/22/2021 04/30/2022 Assessment & Plan (09/25/2021 11:47 AM WAREHOUSE TECHNICIAN): Likely 2/2 poor profusion with cardial tamponade. AST/ALT elevated, but now down trending. AST 502 (peak 3654), AST 1779 (peak 2903). -Improved BP with drain placement and down trending AST/ALT -Trend CMP TANGELA (acute kidney injury) 09/21/2021 Assessment & Plan (09/25/2021 11:46 AM WAREHOUSE TECHNICIAN): Likely 2/2 prerenal etiology in setting of decreased flow with pericardial effusion vs dehydration with poor PO intake at home . Baseline Cr ~ 0.6. Now with down trending BUN/Cr. Cr 1.17 (2.5) with peak of 3.12. Stable UOP- 1655 cc over last 24 hours -Trend BUN/Cr -Monitor UOP -Avoid nephrotoxins Shock 09/21/2021 04/30/2022 Assessment & Plan (09/25/2021 11:45 AM WAREHOUSE TECHNICIAN): 2/2 pericardial effusion with tamponade vs [...] 04/30/2022 Assessment & Plan (09/25/2021 11:47 AM WAREHOUSE TECHNICIAN): likely in setting of poor po intake. Na 134 (133) -fluid resuscitation with NS as needed -daily BMP Leukocytosis 09/08/2021 09/21/2021 Cardiac tamponade 09/08/2021 04/30/2022 Overview (09/22/2021): Added automatically from request for surgery [id number] Assessment & Plan (09/25/2021 11:43 AM WAREHOUSE TECHNICIAN): Likely 2/2 dasatinib. Developed chest pain with CT chest showing small pericardial effusion. 09/21 echo with large pericardial effusion with tamponade physiology. Consulted Cardio Oncology. To open hearth laborer 09/22 for pericardial drain placement. Initial [...] Added automati sabrina from request for surgery [id number] Family History Medical History Relation Name Comments [...] on file Legal Sex Male 8:08 PM WAREHOUSE TECHNICIAN Gender Identity Male 10/04/2021 8:04 PM WAREHOUSE TECHNICIAN Sexual Orientation Not on file Obstetrics History Last Filed Vital Signs Vital Sign Reading Time Taken Comments Blood Pressure 116/75 10/21/2024 2:02 PM WAREHOUSE TECHNICIAN Pulse 62 10/21/2024 2:02 PM WAREHOUSE TECHNICIAN Temperature 36.4 C (97.5 F) 10/21/2024 2:02 PM WAREHOUSE TECHNICIAN Respiratory Rate 18 10/21/2024 2:02 PM WAREHOUSE TECHNICIAN Oxygen Saturation 97% 10/21/2024 2:02 PM WAREHOUSE TECHNICIAN Inhaled Oxygen Concentration - - Weight 103.3 kg (227 lb 12.8 oz) 2023 10:32 AM CDT Height 190.5 cm (6' 3 ) 10/21/2024 2:02 PM WAREHOUSE TECHNICIAN Body Mass Index 28.47 04/13/2024 10:15 [...] AM CDT) Hep A IgM Nonreactive Nonreactive [facility] Comment: Interpretive Data: If Hep A IgM Ab is reported as Equivocal, a new sample should be drawn in two weeks for testing. Current interpretive data was last revised on 19. Hep B core IgM Nonreactive Nonreactive [facility] Comment: Interpretive Data If HepB Core IgM Ab is reported as Equivocal, a new sample should be drawn in two weeks for testing. Current interpretive data was last revised on 19. Hep C Ab Nonreactive Nonreactive [facility] Comment:Antibodies to HCV no t detected. Does NOT exclude the possibility of recent exposure to HCV. HepBsAg Nonreactive Nonreactive [facility] Blood 03/16/2022 11:4 5 AM CDT 03/16/2022 11:59 AM CDT Elicia Espinal MD LAB MICROBIOLOGY - GENERAL ORDERABLES Edited Result - Final [facility] Department of Laboratories [place], [place] [id number] from Last 3 Months or Most Recently Relevant to Health Maintenance Additional Health Concerns Infection Onset Date Last Indicated C. difficile 04/14/2022 04/14/2022 Insurance [facility] [address] [facility] TR[facility]ANT [facility] [place] [address] Advance Directives For more information, please contact: [phone] * Full Code (Latest Code Status on [...] 6:07 PM 11/28/2021 1:36 PM Care Teams Brake Mechanic Relationship Specialty Start Date End Date Domingo Chavez MD PCP - General Internal Medicine 09/05/21 Elicia Espinal MD Medical Oncologist/Transportation Agent Hematology 09/20/21 Dorinda Breen MD [address] [facility] [address] [place] [address] Consulting Physician Gastroenterology 01/30/22
--- NOTE | 2025-02-25 11:53 | PM.IMHP ---
H&P: HPI History of Present Illness Date/Time: 02/25/25 11:53 Chief Complaint: left inguinal hernia Narrative: Alessio returns to the office for evaluation of a left inguinal hernia. Patient states he noticed a left groin bulge about 5 years ago. He has become more symptomatic over the past year. Denies any issues with urinating or with bowel habits. States the bulge is reducible. Review of Systems Review of Systems: All systems reviewed & are unremarkable except as noted in HPI and below PMFSH Past Medical History Medical History Anxiety CML (chronic myelocytic leukemia) Tobacco use Hematochezia External hemorrhoid Patient denies medical problems Surgical History Surgical History H/O hemorrhoidectomy 01/31/22 H/O sinus surgery Social History Social History Smoking packs per day: 1 Smoking cigarettes per day: 20.0 Years smoked: 36 Smoking pack-years: 36.00 Smoking status: Current every day smoker Tobacco type: cigarettes Second hand tobacco smoke exposure: No Alcohol intake: current Drinks per week: 3 Substance use: never Substance use type: does not use Do You Feel Safe in your Home?: Yes Lack of Transportation: No Lack of Food: Never True Current Housing: I Have Housing Concerned About Future Housing: No Difficulty Paying Gas/Electric Bills: No Difficulty Paying for Meds: No Currently Unemployed: YES Education: Trade/Vocational Certificate Difficulty w/ Childcare or Family Care: No Living arrangements: with family Gender identity (if verbalized by the patient): Male Spiritual care concerns: No Meds Home Medications and Allergies Home Medications ?Medication ?Instructions ?Recorded ?Confirmed ?Type lorazepam 0.5 mg tablet 0.5 mg PO PRN 01/30/22 02/17/25 History Allergies Allergy/AdvReac Type Severity Reaction Status Date / Time chlorhexidine Allergy Severe Hives Verified 02/17/25 15:20 grass pollen Allergy Sneezing Verified 02/17/25 15:20 Exam Const: General: cooperative, comfortable and no acute distress Resp: Auscultation: clear to auscultation bilaterally Cardio: Rate: regular rate Rhythm: regular rhythm GI: Inspection: normal to inspection and non-distended GI Palp: No abdominal tenderness, Yes Soft to palpation and Yes Hernia present Other: left inguinal hernia - moderate, reducible Assessment and Plan Assessment and plan (1) Left inguinal hernia: Code(s): K40.90 - Unilateral inguinal hernia, without obstruction or gangrene, not specified as recurrent Status: Acute Assessment and Plan: will setup for robotic assisted repair with mesh
--- NOTE | 2025-02-25 11:55 | WPDHPUPDATE1 ---
History and Physical Update Update Date/Time: 02/25/25 11:55 History and Physical has been reviewed, including an updated exam of the patient. There are NO changes in the patient's condition. Risks, benefits, and alternatives have been discussed and questions answered. Patient agrees to proceed with procedure.
[2025-02-25] MEDS: LACTATED RINGERS 1,000 ML 30 ML IV CONT ×3 (12:45→16:36)
[2025-02-25] MEDS: ACETAMINOPHEN 500 MG TABLET 1000 MG PO (12:52)
--- NOTE | 2025-02-25 12:52 | P.PNAN_ITS ---
Anes - Initial Pre Proc Eval Procedure: Operation Date: 02/25/25 14:00 Proposed Procedures p Robotic Assisted Left Inguinal Hernia Repair with Mesh - Dorinda Breen MD Date/Time: 02/25/25 12:52 Surgeon: Dorinda Breen MD Pre Op Diagnosis: Left Inguinal Hernia Patient Data Age: 49 Gender: M Height: 1.91 m Weight: 96.5 kg Last Vital Signs Temp 36.8 C 02/25/25 12:18 Pulse 62 02/25/25 12:18 Resp 18 02/25/25 12:18 BP 117/69 02/25/25 12:18 Pulse Ox 99 02/25/25 12:18 O2 Del Method Room Air 02/25/25 12:18 Allergies Allergy/AdvReac Type Severity Reaction Status Date / Time chlorhexidine Allergy Severe Hives Verified 02/25/25 12:09 grass pollen Allergy Sneezing Verified 02/25/25 12:09 Home Medications ?Medication ?Instructions ?Recorded ?Confirmed ?Type lorazepam 0.5 mg tablet 0.5 mg PO PRN 01/30/22 02/25/25 History Patient hx anesthesia problems: none Family hx anesthesia problems: none Results Review: All pre-operative results and documents have been reviewed as part of the pre- operative evaluation. [facility] Past Medical History Medical History Anxiety CML (chronic myelocytic leukemia) Tobacco use Hematochezia External hemorrhoid Patient denies medical problems Surgical History Surgical History H/O hemorrhoidectomy 01/31/22 H/O sinus surgery Social History Social History Smoking packs per day: 1 Smoking cigarettes per day: 20.0 Years smoked: 36 Smoking pack-years: 36.00 Smoking status: Current every day smoker Tobacco type: cigarettes Second hand tobacco smoke exposure: No Alcohol intake: current Drinks per week: 3 Substance use: never Substance use type: does not use Do You Feel Safe in your Home?: Yes Lack of Transportation: No Lack of Food: Never True Current Housing: I Have Housing Concerned About Future Housing: No Difficulty Paying Gas/Electric Bills: No Difficulty Paying for Meds: No Currently Unemployed: YES Education: Trade/Vocational Certificate Difficulty w/ Childcare or Family Care: No Living arrangements: with family Gender identity (if verbalized by the patient): Male Spiritual care concerns: No Anes - Eval Final PreProcedure Day of Procedure 02/25/25 12:52 Patient weight: overweight Heart: regular rate and rhythm Lungs: clear to auscultation Airway: Mallampati scale class II Neurological: alert and oriented Last oral intake: >/= 8 hours ASA classification: III Emergent: no Anesthetic plan: proceed Anesthesia type and monitoring: general ETT and standard monitoring Results Review: All pre-operative results and documents have been reviewed as part of the pre- operative evaluation. Informed Consent: The patient's anesthetic plan and its attendant risks and benefits were discussed with the patient/family/POA. Questions were solicited and answers provided to the satisfaction of the patient/family/POA.
[2025-02-25] MEDS: KETOROLAC 15 MG/ML VIAL (*BKC) IV PUSH (12:53)
[2025-02-25] MEDS: ceFAZolin 2 GM/D5W 50 ML 2 GM/50 ML BAG IVPB (14:16)
[2025-02-25] MEDS: BUPIVACAINE/EPINEPHRINE 0.5% 50 ML VIAL 30 ML INFILTRATE (14:46)
--- NOTE | 2025-02-25 15:56 | W.PM.PROC2 ---
Procedure Note - Detailed Date of Procedure 02/25/25 Pre-op Diagnosis Left Inguinal Hernia Post-op Diagnosis Other ( bilateral inguinal hernia) Procedure Performed robotic assisted bilateral inguinal hernia repair with mesh Surgeon Dorinda Breen MD Anesthesia General Indications 49-year-old male presenting to the office complaining of left groin pain. Workup was significant for left inguinal hernia. Since the office visit, the patient has now developed similar pain symptoms on the right. Findings Large left indirect inguinal hernia, small right indirect inguinal hernia Description of Procedure Patient was brought into the operating room and placed in the supine position. After adequate induction of general anesthesia, the patient was prepped and draped in normal sterile fashion. A time-out was then done to verify the patient's identity, as well as the procedure being performed. I began by making a 8 mm incision in the supraumbilical region, a Veress needle was then placed into the peritoneal cavity. CO2 gas was then insufflated and after adequate pneumoperitoneum was achieved, the Veress needle was removed. I then placed an 8 mm trocar through this incision. I then placed the endoscope through this trocar site and under direct visualization placed 2 further 8 mm ports in the right and left mid abdomen. The [employer] robot was then docked to the 3 trocar sites. I then scrubbed out and went to the robotic console. Upon examining the pelvis, it was noted that the patient had a large sized left inguinal hernia. The right side was examined and a small hernia defect was noted. I began by making a preperitoneal flap approximately 6 cm superior to the larger left sided defect. This flap was carried medially past the umbilical ligaments and laterally to the transversalis. It then began dissection of my medial compartment taking this down to the pubic tubercle. Upon dissection of this area, no direct hernia was noted in that space. I then began the lateral dissection taking this down to the transversalis fascia. Once these compartments were achieved, I began dissection around the cord structures. A large sized indirect hernia was noted at this point. Using careful dissection, was able to reduce indirect hernia sac off the cord structures. Once this was adequately done, I went ahead and placed a large piece of 3D Max mesh into the abdominal cavity. The mesh was carefully positioned, centering the center of the mesh over the indirect defect. Once this was done, I was very satisfied with our repair. Using 3-0 Vicryl sutures, I tacked the mesh medially to Yrn's ligament. Two lateral sutures were placed from the mesh to the transversalis fascia. I then began on the right side by making a preperitoneal flap approximately 6 cm superior to the right sided defect. This flap was carried medially past the umbilical ligaments and laterally to the transversalis. It then began dissection of my medial compartment taking this down to the pubic tubercle. I then began the lateral dissection taking this down to the transversalis fascia. Once these compartments were achieved, I began dissection around the cord structures. A small indirect hernia was noted at this point. Using careful dissection, was able to reduce indirect hernia sac off the cord structures. Once this was adequately done, I went ahead and placed a large piece of 3D Max mesh into the abdominal cavity. The mesh was carefully positioned, centering the center of the mesh over the indirect defect. Once this was done, was very satisfied with our repair. Using 3-0 Vicryl sutures, I tacked the mesh medially to Yrn's ligament. Two lateral sutures were placed from the mesh to the transversalis fascia.I then closed the peritoneal flap bilaterally with running 2.0 V Lock suture x 2. The abdomen was then desufflated, and all ports were removed. All incisions were then closed with the 4.0 monocryl suture. Dermabond was placed on each wound. The patient tolerated the procedure well, was extubated in the operating room postoperatively, and will now be transferred to the recovery room in stable condition. Implants bilateral large 3DMax mesh Estimated Blood Loss 10 Drains No Packing No Pathology None sent Complications No immediate complications Condition Stable Disposition PACU [facility] Billing Surgery - Charge Forward: Surgery Billing
[2025-02-25] MEDS: fentaNYL CITRATE INJ (*CRX) 100 MCG/2 ML VIAL 25 MCG IV PUSH ×4 (16:06→16:20)
[2025-02-25] MEDS: HYDROmorphone HCL INJ (*CRX) 1 MG/ML SYR 0.25 MG IV PUSH ×4 (16:35→16:55)
[2025-02-25] MEDS: oxyCODONE HCL (*CRX) 5 MG TAB IR PO (17:30)
--- NOTE | 2025-02-25 18:01 | SUR.PHASEII ---
Pt ambulated to bathroom and voided unmeasured amt of clear yellow urine without difficulty.
== END 2025-02-25 18:09 | disposition home or self-care (01) ==
PROVIDERS: PCP Pediatrics; Visit Provider Surgery
PROC: 8E0Y4CZ Robotic Assisted Procedure of Lower Extremity, Percutaneous Endoscopic Approach (ICD-10-PCS; CPT 49650; principal; 2025-02-25 14:00)
DX: K40.20 Bilateral inguinal hernia, without obstruction or gangrene, not specified as recurrent (principal); F17.210 Nicotine dependence, cigarettes, uncomplicated
CPT/HCPCS: 49650; S2900; A9270; C1781; J0690; J1100; J1171; J1885; J2250; J2405; J2704; J3010; J7030; J7120